=== PATIENT | female | born 1975 | race Caucasian/White ===

== ENCOUNTER → 2017-06-15 14:20 | Outpatient (CLI) | payer OTHER, SELFPAY ==
[2017-06-18 15:24] LABS: HPV Reflexed? NOT INDICATED
== END ==
PROVIDERS: Visit Provider Obstetrics & Gynecology
DX: Z12.4 Encounter for screening for malignant neoplasm of cervix (principal)
CPT/HCPCS: 88175; G0145

== ENCOUNTER 2017-07-30 18:18 | Emergency (ER) | payer OTHER, SELFPAY ==
[2017-07-30 18:21] VITALS: BP 149/99; PULSE 71; RESP 16; TEMP 36.9; O2SAT 98; BMI 28.3
[2017-07-30 21:07] LABS: HIV - WCH Non-Reactive (Nonreactive)
--- NOTE | 2017-07-30 21:19 | ED.VISSUMM ---
- ER Visit Summary Date of Service: 07/30/17 Chief Complaint: Needlestick History of Present Illness: The patient is a 41 F presents for evaluation needlestick left ring finger. 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 States new patient, cleaning her tools when she accidentally punctured and scraped her left ring finger. Initially thought tetanus is unknown, however then state it was 3 years ago. Hepatitis is updated. Discussion with the patient states the patient she managed states that he does not have HIV. However reported his last blood draw was while he was in senior living. Patient is currently breast-feeding a 7-month-old. No previous similar symptoms in the past. No past medical history. Physical Examination: General: Alert and oriented ?3, no acute distress HEENT: Normocephalic, atraumatic. Moist mucosa membranes Neck: supple, nontender. Cardiovascular: Regular rate and rhythm, no murmurs Respiratory: Normal breath sounds, symmetric, no distress Abdomen: Soft, nontender, nondistended Extremities: Nontender, no edema, pulses intact ?4 Neuro: no focal neurological deficits. Skin: Left hand ring finger: There is superficial abrasion dorsal distal phalanx along with the puncture, there is no active bleeding. Test Results: Needlestick protocol, HIV nonreactive Emergency Department Course and Treatment: Needlestick protocol initiated. Patient initially highly concerned with potential HIV exposure especially breast-feeding. Extensive discussion with patient and significant other in the room. Discussed risks and benefits of medications for prophylaxis. CBC recommendations along with side effects of medications shown patient and significant other. They elected to not start prophylaxis at this time. They will be given follow-up with [facility] for outpatient reevaluation. Treatment Plan: [] Disposition: Discharge Impression: Left ring finger puncture and abrasion This note was generated with [employer] dictation software. It may contain incorrect words, spelling, and punctuation that were not noted in review of the chart prior to signing ED Disposition - Plan for ED Patient: Disposition: Home or Assisted Living Chief Complaint: Occup Expose Diagnosis: left ring finger puncture and abrasion Instructions: ED Body Fluid Exp HC Worker Referrals: Care Physician,No Primary [Primary Care Provider] - [facility] Emergency Department [GROUP OF PHYSICIANS] - 1 Day
[2017-07-30 21:26] VITALS: BP 113/77; PULSE 73; RESP 18; O2SAT 98
[2017-08-03 12:13] LABS: HEPATITIS B SURFACE AG Negative (Negative); Hep B Surface Antibodies EMP Non Reactive (.); Hep C Antibodies <0.1 s/co ratio (0.0-0.9)
== END 2017-07-30 21:27 | disposition home or self-care (01) ==
PROVIDERS: Emergency Provider Emergency Medicine
DX: S61.235A Puncture wound without foreign body of left ring finger without damage to nail, initial encounter (principal); S60.415A Abrasion of left ring finger, initial encounter; W46.0XXA Contact with hypodermic needle, initial encounter; Y93.9 Activity, unspecified; Y92.9 Unspecified place or not applicable; Z90.89 Acquired absence of other organs; Z90.710 Acquired absence of both cervix and uterus
CPT/HCPCS: 36415; 86703; 86803; 87340; 90471; 90715; 99282

== ENCOUNTER → 2018-10-28 | Outpatient (CLI) | payer OTHER, SELFPAY ==
[2018-11-02 15:02] LABS: HPV Reflexed? NOT INDICATED
== END | disposition home or self-care (01) ==
LOC: LABSPEC 15:02
PROVIDERS: Visit Provider Obstetrics & Gynecology
DX: Z12.4 Encounter for screening for malignant neoplasm of cervix (principal)
CPT/HCPCS: 88175; G0145

== ENCOUNTER → 2018-11-11 | Outpatient (CLI) | payer OTHER, SELFPAY ==
--- NOTE | 2018-11-11 10:28 | BI_ITS ---
MAMMOGRAPHY - BILATERAL SCREENING REASON FOR EXAM: Female, 42 years old. Routine annual screening examination. PERTINENT HISTORY: Non-contributory. TECHNIQUE: Digital bilateral breast reza (3D mammographic acquisition) in the CC and MLO projections. 2-D mediolateral oblique (MLO) and craniocaudad (CC) views of both breasts were obtained. CAD: Full Field Digital Mammography with Computer Added Detection was performed. COMPARISON: None. Baseline examination. FINDINGS: Breast Composition: The breasts are heterogeneously dense, which may obscure small masses. There are no dominant masses or suspicious calcifications. No other significant abnormalities are identified. BI/SCREEN MAMM (CAD) W/REZA BILAT IMPRESSION: Negative screening mammogram. Yearly followup mammogram recommended. (A) ASSESSMENT CATEGORY: BIRADS Category 1: Negative. A letter regarding these results will be sent to the patient by the facility within 30 days. Approximately 10% of breast cancers are not detected by mammography. A normal mammogram should not delay biopsy of a clinically suspicious abnormality. [id number] Electronically Signed: Juan Watters, at 13:45 EDT , Service support ,
== END | disposition home or self-care (01) ==
PROVIDERS: Referring Provider Obstetrics & Gynecology; Visit Provider Obstetrics & Gynecology
DX: Z12.31 Encounter for screening mammogram for malignant neoplasm of breast (principal)
CPT/HCPCS: 77063; 77067

== ENCOUNTER → 2020-01-26 11:12 | Outpatient (CLI) | payer OTHER, SELFPAY ==
--- NOTE | 2020-01-26 11:16 | RAD_ITS ---
STUDY: X-RAY - LUMBAR SPINE REASON FOR EXAM: Female, 44 years old. PAIN IN LOWER BACK. NO KNOWN INJURY. TECHNIQUE: 5 view(s) of the lumbar spine were obtained. COMPARISON: None FINDINGS: Normal lumbar lordosis. There is no substantial scoliosis. There is a normal alignment of the vertebrae. There is mild multilevel endplate spondylosis of the lumbar vertebrae. Normal disc space heights. There are calcifications within the right upper quadrant. RAD/L/S Spine Min 4 Views IMPRESSION: Mild multilevel endplate spondylosis. Calcifications within the right upper quadrant may reflect cholelithiasis or right renal calculi. Electronically Signed: Ann Ann MD at 10:56 EDT Tel , Service support ,
== END ==
PROVIDERS: PCP Family Medicine; Referring Provider Family Medicine; Visit Provider Family Medicine
DX: M54.5 Low back pain (principal); G89.29 Other chronic pain
CPT/HCPCS: 72110

== ENCOUNTER → 2020-02-09 14:18 | Outpatient (CLI) | payer OTHER, SELFPAY ==
[2020-02-09 17:41] LABS: CRP 4.36 mg/L (0.0-3.0); Uric Acid 4.9 mg/dL (2.6-6.0)
== END ==
PROVIDERS: PCP Family Medicine; Visit Provider Family Medicine
DX: M79.676 Pain in unspecified toe(s) (principal)
CPT/HCPCS: 36415; 84550; 86140

== ENCOUNTER → 2020-07-31 13:44 | Outpatient (CLI) | payer OTHER, SELFPAY ==
--- NOTE | 2020-07-31 13:48 | RAD_ITS ---
STUDY: X-RAY - PELVIS REASON FOR EXAM: Female, 44 years old. Inflammatory polyarthropathy, ATTN: SI joints TECHNIQUE: One view of the pelvis was obtained. COMPARISON: None. FINDINGS: There is a non-specific bowel gas pattern. Normal visualized soft tissue structures. Normal bilateral iliac wings, sacroiliac joints and visualized sacrum. Normal visualized bilateral superior and inferior pubic rami. Normal pubic symphysis. Normal ischial tuberosities. Normal visualized right femoral head. Normal right acetabulum. Normal right hip joint. Normal visualized left femoral head. Normal left acetabulum. Normal left hip joint. RAD/Pelvis 1 or 2 Views IMPRESSION: Normal x-ray examination of the pelvis. Electronically Signed: Juan Watters MD at 15:12 EDT , Service support ,
[2020-07-31 15:06] LABS: Erythrocyte Sedimentation Rate 1 mm/hr (0-30)
[2020-07-31 15:09] LABS: Absolute Lymphocyte Count 2.52 X10^3/uL (0.83-4.51); Absolute Neutrophil Count 3.8 X10^3/uL (2.0-7.7); Basophil# 0.05 X10^3/uL; Basophil% 0.7 % (0-1); Eosinophil# 0.13 X10^3/uL; Eosinophils% 1.8 % (0-5); Hematocrit 44.1 % (37-47); Hemoglobin 14.7 g/dL (12.0-15.0); Lymphocyte # 2.52 X10^3/ul (0.83-4.51); Lymphocyte % 34.6 % (19-41); Mean Corp Hgb Conc 33.3 g/dL (32-36); Mean Corpuscular Hgb 30.1 pg (27.0-32.0); Mean Corpuscular Volume 90.2 fL (81-99); Mean Platelet Vol. 9.8 fl (6.2-12.0); Monocyte# 0.73 X10^3/uL; NRBC Flagged by Analyzer 0 % (0-5); Neutrophil # 3.83 X10^3/uL (2.7-7.7); Neutrophil % 52.5 % (47-70); Platelet Count 320 K/mm3 (150-450); RBC Distribution Width CV 12.4 % (11.6-14.6); RBC Distribution Width SD 41.1 fl (35.1-43.9); Red Blood Count 4.89 M/mm3 (4.2-5.4); White Blood Count 7.3 K/mm3 (4.4-11.0)
[2020-07-31 15:27] LABS: ALB/GLOB Ratio 1.1 RATIO (0.9-2.4); AST(SGOT) 24 U/L (15-37); Alanine Aminotransfer ALT/SGPT 46 U/L (13-56); Albumin, Serum 3.8 g/dL (3.2-5.0); Alkaline Phosphatase 69 U/L (45-117); Anion Gap 8 (5-15); BUN 11 mg/dL (7-18); BUN/Creat Ratio 15.4 RATIO (10-20); CRP 7.63 mg/L (0.0-3.0); Calcium,Total 9.4 mg/dL (8.5-10.1); Chloride 105 mmol/L (98-107); Creatinine, Serum 0.72 mg/dL (0.55-1.02); EST Glomerular Filtration Rate 95 mL/min (>60); Est Glom Filt Rate - Afr Amer 115 mL/min (>60); Globulin 3.5 g/dL (2.2-4.2); Glucose 56 mg/dL (74-106); Potassium 3.5 mmol/L (3.5-5.1); Protein, Total 7.3 g/dL (6.4-8.2); Rheumatoid Factor < 10.0 IU/mL (<15); Sodium Level 141 mmol/L (136-145)
[2020-07-31 16:13] LABS: Hepatitis B Surface Antibody Non-Reactive; Hepatitis B Surface Antigen Non-Reactive (Nonreactive); Hepatitis C Antibody Non-Reactive (Nonreactive)
[2020-08-02 20:48] LABS: ANTINUCLEAR ANTIBODIES DIRECT Negative (Negative)
[2020-08-07 20:39] LABS: CCP IgG Antibodies 2 units (0-19); HLA B27 Negative (.)
== END ==
PROVIDERS: PCP Family Medicine; Referring Provider Internal Medicine Rheumatology; Visit Provider Internal Medicine Rheumatology
DX: M06.4 Inflammatory polyarthropathy (principal); L30.9 Dermatitis, unspecified; G43.909 Migraine, unspecified, not intractable, without status migrainosus
CPT/HCPCS: 36415; 72170; 80053; 81374; 85025; 85652; 86038; 86140; 86200; 86431; 86706; 86803; 87340

== ENCOUNTER → 2020-11-27 09:47 | Outpatient (CLI) | payer OTHER, SELFPAY ==
[2020-11-27 12:16] LABS: Absolute Lymphocyte Count 2.42 X10^3/uL (0.83-4.51); Absolute Neutrophil Count 3.1 X10^3/uL (2.0-7.7); Basophil# 0.04 X10^3/uL; Basophil% 0.6 % (0-1); Eosinophil# 0.16 X10^3/uL; Eosinophils% 2.6 % (0-5); Hematocrit 39.5 % (37-47); Hemoglobin 13.2 g/dL (12.0-15.0); Lymphocyte # 2.42 X10^3/ul (0.83-4.51); Lymphocyte % 38.7 % (19-41); Mean Corp Hgb Conc 33.4 g/dL (32-36); Mean Corpuscular Hgb 29.7 pg (27.0-32.0); Monocyte# 0.53 X10^3/uL; Monocyte% 8.5 % (0-10); NRBC Flagged by Analyzer 0 % (0-5); Neutrophil # 3.09 X10^3/uL (2.7-7.7); Neutrophil % 49.3 % (47-70); Platelet Count 301 K/mm3 (150-450); RBC Distribution Width CV 12.6 % (11.6-14.6); RBC Distribution Width SD 41.2 fl (35.1-43.9); Red Blood Count 4.44 M/mm3 (4.2-5.4); White Blood Count 6.3 K/mm3 (4.4-11.0)
[2020-11-27 12:44] LABS: ALB/GLOB Ratio 1.5 RATIO (0.9-2.4); AST(SGOT) 20 U/L (15-37); Alanine Aminotransfer ALT/SGPT 44 U/L (13-56); Alkaline Phosphatase 48 U/L (45-117); Anion Gap 6 (5-15); BUN 9 mg/dL (7-18); BUN/Creat Ratio 13.9 RATIO (10-20); Calcium,Total 9.4 mg/dL (8.5-10.1); Chloride 107 mmol/L (98-107); Creatinine, Serum 0.65 mg/dL (0.55-1.02); EST Glomerular Filtration Rate 106 mL/min (>60); Est Glom Filt Rate - Afr Amer 128 mL/min (>60); Globulin 2.7 g/dL (2.2-4.2); Glucose 87 mg/dL (74-106); Protein, Total 6.7 g/dL (6.4-8.2); Sodium Level 137 mmol/L (136-145)
== END ==
PROVIDERS: PCP Family Medicine; Referring Provider Internal Medicine Rheumatology; Visit Provider Internal Medicine Rheumatology
DX: M06.4 Inflammatory polyarthropathy (principal); Z79.899 Other long term (current) drug therapy; L30.9 Dermatitis, unspecified; G43.909 Migraine, unspecified, not intractable, without status migrainosus
CPT/HCPCS: 36415; 80053; 85025

== ENCOUNTER 2021-01-28 13:00 | Outpatient (RCR) | payer OTHER, SELFPAY | END 2021-02-03 23:59 | LOC: NS 13:00 | PROVIDERS: PCP Family Medicine; Visit Provider Family Medicine | DX: E66.9 Obesity, unspecified (principal); Z68.31 Body mass index [BMI] 31.0-31.9, adult | CPT/HCPCS: 97802; 97803 ==

== ENCOUNTER 2021-02-25 10:00 | Outpatient (RCR) | payer OTHER, SELFPAY | END 2021-03-05 23:59 | LOC: NS 10:00 | PROVIDERS: PCP Family Medicine; Visit Provider Family Medicine | DX: E66.9 Obesity, unspecified (principal); Z68.31 Body mass index [BMI] 31.0-31.9, adult | CPT/HCPCS: 97803 ==

== ENCOUNTER → 2021-03-19 12:11 | Outpatient (CLI) | payer OTHER, SELFPAY ==
--- NOTE | 2021-03-19 12:13 | BI_ITS ---
MAMMOGRAPHY - BILATERAL SCREENING REASON FOR EXAM: Female, 45 years old. Routine annual screening examination. PERTINENT HISTORY: Non-contributory. TECHNIQUE: Digital bilateral breast reza (3D mammographic acquisition) in the CC and MLO projections. 2-D mediolateral oblique (MLO) and craniocaudad (CC) views of both breasts were obtained. CAD: Full Field Digital Mammography with Computer Added Detection was performed. COMPARISON: Comparison is made with prior examination dated 11/11/2018. FINDINGS: Breast Composition: The breasts are heterogeneously dense, which may obscure small masses. I suspect a new 1.1 cm nodular density in the upper lateral aspect of the left breast. Correlation with ultrasound is recommended. No other significant abnormalities are identified. BI/SCRN MAMM (CAD)W/REZA BILAT IMPRESSION: 1.1 cm nodular density in the upper lateral aspect of the left breast. Correlation with ultrasound is recommended. ASSESSMENT CATEGORY: BIRADS Category 0: Incomplete. Need additional imaging evaluation. A letter regarding these results will be sent to the patient by the facility within 30 days. Approximately 10% of breast cancers are not detected by mammography. A normal mammogram should not delay biopsy of a clinically suspicious abnormality. [id number] Electronically Signed: Juan Watters MD at 13:57 EST , Service support ,
== END ==
PROVIDERS: PCP Family Medicine; Visit Provider Student in an Organized Health Care Education/Training Program
DX: Z12.31 Encounter for screening mammogram for malignant neoplasm of breast (principal)
CPT/HCPCS: 77063; 77067

== ENCOUNTER → 2021-03-26 07:52 | Outpatient (CLI) | payer OTHER, SELFPAY ==
--- NOTE | 2021-03-26 07:58 | US_ITS ---
STUDY: ULTRASOUND BREAST - LEFT REASON FOR EXAM: Female, 45 years old. Questionable nodule in the upper-outer quadrant of the left breast. TECHNIQUE: Axial and longitudinal images of the LEFT breast were performed with a high resolution ultrasound transducer. # OF IMAGES: 26 COMPARISON: Comparison is made with prior mammogram dated 03/19/2021. FINDINGS: LEFT Breast: The upper lateral aspect of the left breast was examined by ultrasound. No solid or cystic nodule is seen. Routine annual mammographic follow-up is recommended. US/Breast Limited Unilateral IMPRESSION: No sonographic abnormality is seen in the upper-outer quadrant of the left breast. Routine annual mammographic follow-up is recommended. ASSESSMENT CATEGORY: BIRADS Category 1: Negative. A letter regarding these results will be sent to the patient by the facility within 30 days. Electronically Signed: Juan Watters MD at 8:56 EST , Service support ,
== END ==
PROVIDERS: PCP Family Medicine; Referring Provider Student in an Organized Health Care Education/Training Program; Visit Provider Student in an Organized Health Care Education/Training Program
DX: N63.20 Unspecified lump in the left breast, unspecified quadrant (principal)
CPT/HCPCS: 76642

== ENCOUNTER 2022-01-31 08:58 | Outpatient (RCR) | payer OTHER, SELFPAY ==
--- NOTE | 2022-01-31 10:57 | HP.PTEVAL ---
Patient's Visit Information VIKTOR LOONEY is a 46 year old F referred to Physical Therapy by NOLVIA SCHULTE with a diagnosis of COCCYDYNIA. Date of Evaluation: 01/31/22 Physical Therapist: Brigid Marie PT, Cert MDT - Visit Plan Frequency: 1-2x /Week Duration: 6-8 WKS Plan: POSTURE CORRECTION/STRENGTHENING, INSTRUCTION IN APPROPRIATE BODY MECHANICS AND ACTIVITY MODIFICATIONS. DLS STARTING WITH A NEUTRAL SPINE PROGRESSING ROM TOLERATED. PELVIC FLOOR STRENGTHENING. LUIS M LE ROM, STRETCHING AND STRENGTHENING. HEP INSTRUCTION. 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 Disability: NO. Present symptoms: LUIS M LOW BACK PAIN BUT LOWER LEFT LOW BACK PAIN THAT RADIATES INTO HER LEFT HIP AND GROIN IS THE WORST. CURRENTLY TAILBONE ALSO HURTS AND DRIVING IS HORRIBLE. SITTING SIDEWAYS TO TOLERATE SITTING. PATIENT DENIES LUIS M LE SX'S EXCEPT L HIP AND GROIN. PATIENT REPORTS SHE HAS BEEN HAVING LOW BACK PAIN FOR 8+ YEARS. INJECTIONS HAVEN'T HELPED. SHE REPORTS SHE WAS SENT HERE TODAY DUE TO RECENT TAILBONE PROBLEMS. Present since: PATIENT REPORTS SHE BROKE OR DISLOCATED HER TAILBONE IN DEC 2021. LBP STARTED ABOUT 8 YEARS AGO. Pain Scale: WORST 8/10 (SHARP SHOOTING PAIN INTO HIP/GROIN L). LEAST 0/10. Currently: 4/10. Is it getting better, worse or staying the same: GETTING WORSE. Commenced as a result of: DURING 2ND THEY HAD A REALLY HARD TIME GETTING EPIDURAL IN (8 YEARS AGO) AND POSSIBLY STARTED LBP. FALL ON ICE WHILE SKATING 12/29/21. Worse: SITTING, TRAVELING INCRASE TAILBONE PAIN. LBP IS WORSE IN THE MORNING AND WITH BENDING. THE SHOOTING PAINS ARE RANDOM. ABLE TO WORK THROUGH LBP BUT NOT SHOOTING PAINS INTO HIP/GROIN. Better: SQUATTING DOWN HELPS SHARP SHOOTING PAIN. CHANGING POSITIONS. SITTING HELPS LBP BUT NOT WITH TAILBONE PAIN. Disturbed sleep: NO. Previous history/Previous treatment: CHIROPRACTOR X 8 YEARS NEEDED. PAIN MGMT STARTING IN JUNE 2021. L45, L5S1 FACET INJECTIONS/PROCEEDURES. HAS SEEN [facility] [employer] AND DR. OLIVEIRA. DX'D WITH INFLAMMATION. CONSULT WITH DR. RAMIREZ AND REFERRED TO PAIN MGMT. HAS HAD ABOUT 4 INJECTIONS WITHOUT LASTING BENEFIT. STILL SEEING CHIROPRACTOR. PATIENT REPORTS SHE WAS SENT TO AN ORTHO SPECIALIST IN THE [place] AFTER DX'D WITH TAIL BONE DISLOCATION. SHE DENIES HAVING A DIGITAL RECTAL EXAM. URGENT CARE SENT HER TO THIS SPECIALIST IN [place]. THIS DR. SCHULTE REFERRED HER TO PT. DONUT CUSHION MADE IT WORSE SO CUT BACK OUT AND HELPED A BIT. Coughing/sneezing/straining: NEGATIVE FOR BACK AND TAILBONE PAIN. OCCASSIONAL, MINIMAL URINARY LEAKING WITH COUGHING/SNEEZING. Gait: NORMAL. Bowel or Bladder Dysfunction: PATIENT REPORTS SHE DOES NOT ALWAYS MAKE IT TO THE BATHROOM BEFORE HAVING A BOWEL MVMT SINCE FIRST . PATIENT DENIES SADDLE ANESTHESIAS. OCCASSIONAL, MINIMAL URINARY LEAKING WITH COUGHING/SNEEZING. INSTRUCTED PATIENT TO INFORM PCP AND PAIN MGMT DOCTORS RIGHT AWAY ABOUT INCONTINENCE AND TO SEEK EMERGENCY MEDICAL ATTENTION IF EPISODE OF LOSS OF BOWEL OR BLADDER CONTROL. Accidents: NO. Unexplained weight loss: NO. Imaging: LUMBAR MRI APR 2021 - NORMAL PER PATIENT REPORT AFTER CONSULT WITH DR. RAMIREZ. JULY 2020 PELVIC X-RAY IMPRESSION: Normal x-ray examination of the pelvis. PATIENT REPORTS RECENT X-RAYS AT [facility] REVEAL FX'D OR DISLOCATED TAILBONE. . PMH/Recent major surgery: LUMBAR FACET ARTHRITIS WITH H/O PAIN MGMT PROCEEDURES. 2017 BLADDER INJURY DURING AND HAD TO BE REPAIRED. PATIENT FEELS LIKE SHE RECOVERED FROM HER BLADDER INJURY AND THE REPAIR WORKED BUT SOMETIMES FEELS LIKE SHE HAS URINARY RETENTION AT TIMES. PATIENT DENIES EVER SEEING A urogynecologist OR DISCUSSING INCONTINENCE WITH ANY OF HER DOCTORS. - Objective Sitting/Standing Posture: SLOUCHED. FH. RSH'S. NO RELEVENT LUMBAR LATERAL SHIFT. Active Correction of posture: BETTER - ACTIVELY AND WITH LUMBAR SUPPORT. BOTH DECREASE HER TAILBONE PAIN. Other Observations: THIS PATIENT AMBULATES INDEP'LY INTO PT WITHOUT ANY GROSS DEVIATIONS NOTED. ROM deficit: TIGHT LUIS M LE HS'S AND GASTROC SOLEUS COMPLEX'S. Motor deficit: LUIS M LE'S GROSSLY 5/5 WITH MMT'ING EXCEPT HIPS 4/5. PATIENT DENIED ANY INCREASED PAIN WITH MMT'ING. Dural Signs: NEGATIVE LUIS M LE'S. Lumbar mvmt loss: flex - MIN. ext - MOD. R SG - MIN. L SG - MIN. PATIENT C/O INCREASED LOWER LEFT LBP WITH LUMBAR ROM TESTING ALL PLANES BUT ESPECIALLY FLEX AND EXT TESTING. Core strength: POOR. Palpation: NO ACUTE LOW BACK OR LUIS M HIP TENDERNESS. ACUTE TENDERNESS OVER TAILBONE. OTHER: PATIENT AGREEABLE TO BACK AND LE TESTING TODAY. COMMUNICATES A GOOD UNDERSTANDING OF HOW TO CONTRACT HER PELVIC FLOOR. AFTER DISCUSSION, PATIENT IS GOING TO CONSIDER GOING TO PELVIC FLOOR THERAPIST IN [place] RECOMMENDED BY DR SCHULTE FOR COCCYX PAIN. WILL HOLD CHART. EDUCATED PATIENT ON THIS PT'S LAM THERAPY CREDENTIAL AND INTRODUCTORY PELVIC FLOOR TRAINING. PATIENT REPORTS SHE WANTS TO SEE COCCYX X-RAYS AND FIND OUT IF HER COCCYX IS BROKEN OR DISLOCATED BEFORE DOING PT BECAUSE SHE HAS BEEN GIVEN BOTH DX'S. - Balance/Special Test Scores Oswestry Low Back Score: 10 - Goals Goal 1:: DECREASE C/O LOW BACK AND TAILBONE PAIN. Goal Time Frame: 6-8 Weeks Goal 2:: IMPROVE SITTING, STANDING, SOCIAL LIFE, TRAVEL AND HOMEMAKING FUNCTION Goal Time Frame: 6-8 Weeks Goal 3:: INSTRUCT IN PROPHYLAXIS Goal Time Frame: 6-8 Weeks - Anticipated Interventions Patient/Client Instruction: Educate patient on: Condition, Plan of Care, Risk Factors For the Purpose of:: To improve self management Therapeutic Exercise to Include: Strength training, Body mechanics, Postural training, Flexibilty training, Neuromotor development, In an aquatic setting, Dynamic Lumbar Stabilization For the Purpose of:: To decrease pain, To increase ROM, To improve muscle performance and motor function, To increase tolerance to activity/condition/position, To improve ability of physical actions for home/community/work/leisure Manual Therapy Techniques to Include: Soft tissue mobilization Comment: MANUAL INTERNAL PF STM IF Patient AGREEABLE & TESTING DEEMS NECESSARY For the Purpose of:: To decrease pain, To increase ROM, To improve muscle performance and motor function Thank you for the opportunity to evaluate your patient. For Medicare and Medicare HMO plans, please review the plan of care and approve it. It will need to be FAXED BACK to us at [phone] for Medicare purposes. For Medicare only, by signing this I certify the plan of care. Please let me know if there are questions or concerns regarding this plan of care. Physician Signature: Date:
--- NOTE | 2022-04-04 16:31 | HP.PTDCNRP_ITS ---
VIKTOR LOONEY was seen in my office for initial evaluation on 01/31/22. The following Plan of Care was established for this patient: Initial Frequency: 1-2x /Week Initial Duration: 6-8 WKS Patient/Client Instruction: Educate patient on: Condition, Plan of Care, Risk Factors For the Purpose of:: To improve self management Therapeutic Exercise to Include: Strength training, Body mechanics, Postural training, Flexibilty training, Neuromotor development, In an aquatic setting, Dynamic Lumbar Stabilization For the Purpose of:: To decrease pain, To increase ROM, To improve muscle performance and motor function, To increase tolerance to activity/condition/position, To improve ability of physical actions for home/community/work/leisure Manual Therapy Techniques to Include: Soft tissue mobilization Comment: MANUAL INTERNAL PF STM IF Patient AGREEABLE & TESTING DEEMS NECESSARY For the Purpose of:: To decrease pain, To increase ROM, To improve muscle p erformance and motor function This patient was last seen in our office 01/31/22. Pertinent comments regarding their Physical therapy will appear below: This patient has not returned to Physical Therapy and is appropriate to return to MD for further follow-up as needed. At this point I will be discontinuing this patient from physical therapy. I would be happy to see this patient again in the future if found appropriate by the physician. Thank you! Brigid Marie, PT, Cert MDT Balance/Gait/Functional tests - Balance/Special Test Scores Oswestry Low Back Score: 10
== END 2022-01-31 19:00 | disposition home or self-care (01) ==
LOC: PT 08:58
PROVIDERS: PCP Family Medicine
DX: M53.3 Sacrococcygeal disorders, not elsewhere classified (principal)
CPT/HCPCS: 97162

== ENCOUNTER → 2022-02-13 | Outpatient (CLI) | payer OTHER, SELFPAY ==
[2022-02-13 12:28] LABS: Absolute Lymphocyte Count 2.91 X10^3/uL (0.83-4.51); Absolute Neutrophil Count 4.2 X10^3/uL (2.0-7.7); Basophil# 0.04 X10^3/uL; Basophil% 0.5 % (0-1); Eosinophils% 1.3 % (0-5); Hematocrit 43.3 % (37-47); Hemoglobin 14.6 g/dL (12.0-15.0); Lymphocyte # 2.91 X10^3/ul (0.83-4.51); Lymphocyte % 36.9 % (19-41); Mean Corp Hgb Conc 33.7 g/dL (32-36); Mean Corpuscular Volume 88.9 fL (81-99); Mean Platelet Vol. 9.2 fl (6.2-12.0); Monocyte# 0.59 X10^3/uL; Monocyte% 7.5 % (0-10); NRBC Flagged by Analyzer 0 % (0-5); Neutrophil # 4.23 X10^3/uL (2.7-7.7); Neutrophil % 53.5 % (47-70); Platelet Count 335 K/mm3 (150-450); RBC Distribution Width CV 12.5 % (11.6-14.6); RBC Distribution Width SD 41.1 fl (35.1-43.9); Red Blood Count 4.87 M/mm3 (4.2-5.4); White Blood Count 7.9 K/mm3 (4.4-11.0)
[2022-02-13 12:41] LABS: Erythrocyte Sedimentation Rate 9 mm/hr (0-30)
[2022-02-13 13:01] LABS: ALB/GLOB Ratio 1.2 RATIO (0.9-2.4); AST(SGOT) 19 U/L (15-37); Alanine Aminotransfer ALT/SGPT 41 U/L (13-56); Albumin, Serum 4.1 g/dL (3.2-5.0); Alkaline Phosphatase 60 U/L (45-117); Anion Gap 7 (5-15); BUN 9 mg/dL (7-18); BUN/Creat Ratio 13.6 RATIO (10-20); CRP 5.29 mg/L (0.0-3.0); Calcium,Total 9.4 mg/dL (8.5-10.1); Chloride 108 mmol/L (98-107); Creatinine, Serum 0.66 mg/dL (0.55-1.02); EST Glomerular Filtration Rate 103 mL/min (>60); Est Glom Filt Rate - Afr Amer 124 mL/min (>60); Globulin 3.4 g/dL (2.2-4.2); Glucose 88 mg/dL (74-106); LDH 168 U/L (84-246); Potassium 3.7 mmol/L (3.5-5.1); Protein, Total 7.5 g/dL (6.4-8.2); Sodium Level 140 mmol/L (136-145)
[2022-02-14 13:08] LABS: Anti-Centromere B Ab <0.2 AI (0.0-0.9); Anti-Chromatin <0.2 AI (0.0-0.9); Anti-Jo <0.2 AI (0.0-0.9); Anti-Scleroderma-70 AB <0.2 AI (0.0-0.9); RNP Ab <0.2 AI (0.0-0.9); SJOGREN'S Anti-SS-A test < 0.2 AI (0.0-0.9); SJOGREN'S Anti-SS-B test < 0.2 AI (0.0-0.9); Smith Ab <0.2 AI (0.0-0.9)
[2022-02-14 15:08] LABS: Endomysial Antibody IgA Negative (Negative)
[2022-02-14 15:35] LABS: Anti-dsDNA Ab 1 IU/mL (0-9)
[2022-02-14 15:39] LABS: Immunoglobulin A 108 mg/dL (87-352); t-Transglutaminase IgA <2 U/mL (0-3)
[2022-02-17 10:07] LABS: Albumin 4.2 g/dL (2.9-4.4); Alpha-1-Globulins 0.2 g/dL (0.0-0.4); Alpha-2-Globulins 0.9 g/dL (0.4-1.0); Cytoplasmic Ab (C-ANCA) <1:20 titer (Neg:<1:20); Gamma Globulin 0.8 g/dL (0.4-1.8); Immunoglobulin A 108 mg/dL (87-352); Immunoglobulin E 20 IU/mL (6-495); Immunoglobulin G 774 mg/dL (586-1602); Immunoglobulin M 144 mg/dL (26-217); PROEL- TOTAL PROTEIN 7.1 g/dL (6.0-8.5)
[2022-02-17 17:50] LABS: Perinuclear Ab (P-ANCA) <1:20 titer (Neg:<1:20)
== END | disposition home or self-care (01) ==
PROVIDERS: PCP Family Medicine; Visit Provider Nurse Practitioner Adult Health
DX: K52.9 Noninfective gastroenteritis and colitis, unspecified (principal)
CPT/HCPCS: 36415; 80053; 82784; 82785; 83516; 83615; 84165; 85025; 85652; 86140; 86225; 86235; 86255; 86256; 86334

== ENCOUNTER → 2022-02-14 | Outpatient (CLI) | payer OTHER, SELFPAY ==
[2022-02-18 13:39] LABS: Calprotectin, Stool <16 ug/g (0-120)
== END | disposition home or self-care (01) ==
PROVIDERS: PCP Family Medicine; Referring Provider Nurse Practitioner Adult Health; Visit Provider Nurse Practitioner Adult Health
DX: K58.9 Irritable bowel syndrome, unspecified (principal)
CPT/HCPCS: 83630; 83993; 87177; 87209; 87493; 87506

== ENCOUNTER 2022-02-22 08:46 | Outpatient (CLI) | payer OTHER, SELFPAY ==
--- NOTE | 2022-02-22 08:54 | US_ITS ---
STUDY: ABDOMINAL ULTRASOUND REASON FOR EXAM: Female, 46 years old. Right upper quadrant pain, diarrhea TECHNIQUE: Transabdominal ultrasound was performed with real-time and static walls scale imaging. TECHNICAL QUALITY: Limited. Examination limited by bowel gas. COMPARISON: None. FINDINGS: Liver: The liver measures 17.9 cm. There is increased echogenicity consistent with fatty infiltration. The bile ducts are within normal limits. There is hepatic color flow. The direction of portal flow is hepatopetal. There is no demonstrated mass lesion. Portal vein measurement: Gallbladder: Normal distended gallbladder. The gallbladder wall measures 1.3 mm. There is a negative sonographic Metzger''s sign. There is no pericholecystic fluid. There are multiple echogenic structures within the gallbladder, consistent with multiple gallstones. Common Bile Duct (C.B.D.): The common bile duct measures 4 mm. Pancreas: The visualized pancreas is sonographically normal Spleen: Normal size of the spleen. The spleen measures 11 cm. Right Kidney: Normal size of the right kidney. The right kidney measures 10.5 x 4.3 x 3.6 cm. Normal renal cortex. . There is no demonstrated renal mass or cyst. There is no right hydronephrosis, there are nonobstructing stones, largest measures 1.14 cm.. Left Kidney: Normal size of the left kidney. The left kidney measures 11 x 4.8 x 5.3 cm. Normal renal cortex. There is no demonstrated renal mass or cyst. There is no left hydronephrosis. Aorta: Tapers normally I.V.C.: The IVC is patent. There is no ascites. US/Abdomen Complete IMPRESSION: Fatty liver, no discrete lesion Nonobstructing right nephrolithiasis Cholelithiasis, no sonographic evidence of acute cholecystitis Electronically Signed: Remigio Celestin MD at 10:21 EST ,
== END 2022-02-22 23:59 | disposition home or self-care (01) ==
PROVIDERS: PCP Family Medicine; Referring Provider Nurse Practitioner Adult Health; Visit Provider Nurse Practitioner Adult Health
DX: R19.7 Diarrhea, unspecified (principal); R10.11 Right upper quadrant pain
CPT/HCPCS: 76700

== ENCOUNTER 2022-04-15 11:03 | Day surgery (SDC) | payer OTHER, SELFPAY ==
--- NOTE | 2022-04-15 11:38 | HP.PCM_ITS ---
History and Physical Date of Admission: 04/15/22 46 F who presents to the office today for referral for urgent diarrhea with fecal incontinence. She recalls a lifetime of urgent loose stools. The fecal incontinence isn't new, it occurs with the urgency. Has always had multiple stools per day. Has gotten worse over time. She gets nocturnal symptoms about 2- 3x per month: crampy abd pains which can be severe, then BM which can be formed, then more stools that are watery; occurs especially after greasy foods. She has 4-5 BMs per day. Usually mushy or loose or watery, occas formed, never constipation. No melena or hematochezia. She gets nausea from spicy foods. Heartburn began during her first . Takes TUMS regularly. Can have acid reflux in the night. She had C diff after appy in 2003 Gallstones were seen on xray done for back pain Dec 2021 broke her tailbone. She was referred for pelvic floor PT, the PT was concerned that she has fecal incontinence. Cousin and cousin's daughter have Crohn's Back issues x [address] Hanna, diagnosed with inflammatory polyarthropathy. She has pains in her back and toes. PSH: x 4, hysterectomy, appy ROS Const Constitutional: Positive for fatigue ENT ENT: No difficulty swallowing Gastro GI: Positive for diarrhea; No abdominal pain, belching, bloating, change in bowel habits, change in stool character, coffee ground emesis, constipation, cramping, heartburn, difficulty swallowing, feeling full early, excessive flatus, incontinent of stools, Vomiting blood/hematemesis, Blood in stool, loose stools, Black,tarry stools, nausea/dyspepsia, pain with swallowing, vomiting or other Musc Musculoskeletal: Positive for joint pain, back pain, stiffness and Arthritis Skin Skin: No yellowing of the eye or itchy eyes Psych Psychiatric: No anxiety and No depression Endo Endocrine: Positive for fatigue Aller/Imm Allergy/Immunologic: No itchy eyes Tanmay/Lymp Hematologic/Lymphatic: No easy bleeding or easy bruising Exam Const General: cooperative and comfortable Nutritional Appearance: obese Orientation: alert, awake and oriented x3 HENMT Head: normal to inspection Eyes General: appearance normal, both eyes and all related structures Resp Effort & Inspection: normal respiratory effort GI Inspection: normal to inspection Palpation: soft, no hepatosplenomegaly, no masses and tender (minimal generalized tenderness) Quality Reporting Tobacco Screening (CMS 138) Smoking Status: Never smoker Assessment and Plan Assessment and Plan (1) Chronic diarrhea: ?Status:?Chronic ?Plan: 46 yr old female with chronic diarrhea, fecal incontinence with urgent diarrhea, nocturnal diarrhea. Workup to eval for celiac, IBD, infection. Prior C diff infection. EGD and colonoscopy w/ office f/u afterwards No treatment desired at this time RUQ US to eval previous incidental finding of gallstones CT can be ordered later if needed (2) Gallstones: ?Status:?Acute ?Plan: as above ? ? ? Orders: Orders Abdomen Complete Today K52.9 - Noninfective gastroenteritis and colitis, unspecified, K80.20 - Calculus of gallbladder without cholecystitis without obstruction ? Comprehensive Metabolic Profil Today K52.9 - Noninfective gastroenteritis and colitis, unspecified ? CRP Today K52.9 - Noninfective gastroenteritis and colitis, unspecified ? LDH Today K52.9 - Noninfective gastroenteritis and colitis, unspecified ? CBC W/Diff, Automated Today K52.9 - Noninfective gastroenteritis and colitis, unspecified ? Erythrocyte Sed Rate Today K52.9 - Noninfective gastroenteritis and colitis, unspecified ? UMU Comprehensive Panel Today K52.9 - Noninfective gastroenteritis and colitis, unspecified ? Calprotectin, Stool Today K52.9 - Noninfective gastroenteritis and colitis, unspecified ? Ova and Parasites [id number] Today K52.9 - Noninfective gastroenteritis and colitis, unspecified, K58.9 - Irritable bowel syndrome without diarrhea ? CDIFF (PCR) Today K52.9 - Noninfective gastroenteritis and colitis, unspecified ? ENTERIC PATHOGEN PANEL STOOL Today K52.9 - Noninfective gastroenteritis and colitis, unspecified, K58.9 - Irritable bowel syndrome without diarrhea ? Stool Lactoferrin/WBC Today K52.9 - Noninfective gastroenteritis and colitis, unspecified ? ANCA Today K52.9 - Noninfective gastroenteritis and colitis, unspecified ? Celiac Disease Profile Today K52.9 - Noninfective gastroenteritis and colitis, unspecified ? Immunoglobulins G/A/M/E Today K52.9 - Noninfective gastroenteritis and colitis, unspecified ? ZANE + Protein Elect, Serum Today K52.9 - Noninfective gastroenteritis and colitis, unspecified ? Miscellaneous Lab Procedure Today K52.9 - Noninfective gastroenteritis and c olitis, unspecified ? I have examined the patient and the H&P has been reviewed. There are no clinical changes since date of exam.
[2022-04-15 11:40] VITALS: BP 119/87; PULSE 78; RESP 12; TEMP 36.6; O2SAT 98
[2022-04-15] MEDS: Lactated Ringers 1,000 ML 15 ML IV (11:46)
--- NOTE | 2022-04-15 12:00 | IMM_PTH ---
PATIENT: VIKTOR LOONEY LOC: EN U#:[id number] AGE/SX: 46/F ROOM: RE04/15/[address]: Dr. J Carlos Hinson DO : 1975 BED: DIS: 04/15/2022 SPEC #: [id number] RECD: 04/16/22 09:26 STATUS: LEXX REDrew #: [id number] JAIRO: 04/15/22 12:[address]: J Carlos Hinson DEPT: IMMUNOHISTOCHEMISTRY RECD BY: Roseline Haile ENTERED: 04/16/22 09:26 SP TYPE: IMMUNO OTHR DR: Dr. Bob Remy DO Tissues: B - Stomach, NOS Procedures: H Pylori (initial) PHYSICIAN & INSTITUTION [place] [id number] SPECIMEN INFORMATION: Tissue Source: B ? Gastric body Clinical Info: Chronic diarrhea, gallstones Specimen Number: [id number] CPT code: 14343 METHODOLOGY: Deparaffinized sections of prefer/formalin-fixed tissue or PAP/DQ stained slides are incubated with monoclonal/polyclonal antibodies/oligonucleotide probes. Localization is made via biotin free immunoperoxidase method. Appropriate controls are performed and reacted as expected. Results on target cell population are indicated in the following table: RESULTS: ANTIBODY / CLONE RESULT Block B H Pylori (polyclonal) negative These tests were developed and their performance characteristics determined by [facility]. They may not have been cleared or approved by the U.S. Food and Drug Administration. The FDA has determined that such clearance or approval is not necessary. The above immunohistochemical/dualISH markers are ordered and reviewed by the Pathologist. INTERPRETATION: B. Gastric body, biopsy: Negative for Helicobacter pylori organisms. [facility] 04/17/2022
--- NOTE | 2022-04-15 12:00 | EGD_PTH ---
PATIENT: VIKTOR LOONEY LOC: [facility] U#:[id number] AGE/SX: 46/F ROOM: RE04/15/[address]: Dr. J Carlos Hinson DO : 1975 BED: DIS: 04/15/2022 SPEC #: [id number] RECD: 04/15/22 14:22 STATUS: LEXX DIRK #: [id number] JAIRO: 04/15/22 12:[address]: J Carlos Hinson DEPT: SURGICAL PATHOLOGY RECD BY: Tammie Gagnon ENTERED: 04/16/22 07:23 SP TYPE: EGD BIOPSY OT DR: Dr. Bob Remy DO Tissues: A - Duodenum, NOS B - Gastric mucous membrane C - Esophagus, NOS D - COLON BIOPSY E - Rectum, NOS Procedures: Special Stain Group II Surgery Specimen Level IV Alcian Blue/PAS (control) HEADER OPERATION: Colonoscopy, EGD (MAC), biopsy PRE-OP DIAGNOSIS: Chronic diarrhea, gallstones TISSUE SUBMITTED: A ? Duodenum biopsy, B ? Gastric body biopsy, C ? Distal esophagus biopsy, D ? Random colonic biopsy, E ? Rectal biopsy MICROSCOPIC DIAGNOSIS A. Duodenum, biopsy: Fragments of duodenal mucosa with mild nonspecific chronic inflammation. B. Gastric body, biopsy: Mild gastritis. See microscopic description and comment. C. Distal esophagus, biopsy: Fragments of gastric mucosa with chronic inflammation. Intestinal metaplasia (goblet cell metaplasia) not identified. See comment. D. Colon, random biopsy: Fragments of colonic mucosa, no pathologic diagnosis. E. Rectal biopsy: Fragments of colonic mucosa, no pathologic diagnosis. SJ:dale 04/17/2022 COMMENT B. The results of immunohistochemistry for Helicobacter pylori will be reported separately ([id number]). C. Alcian blue/PAS stain with matched control is used in the evaluation of the specimen. MICROSCOPIC DESCRIPTION Slides are reviewed. B. The specimen shows fragments of gastric mucosa with chronic inflammatory cell infiltrates in the lamina propria consisting of lymphocytes and plasma cells, consistent with mild chronic gastritis. GROSS DESCRIPTION A - Received in fixative is one container labeled with the patient's name and designated duodenum biopsy. The specimen consists of multiple irregular fragments of light ramey soft tissue that in aggregate measure 0.5 x 0.5 x 0.1 cm. The specimen is totally submitted in one cassette. B - Received in fixative is one container labeled with the patient's name and designated gastric body biopsy. The specimen consists of two irregular fragments of light ramey soft tissue that in aggregate measure 0.8 x 0.6 x 0.1 cm. The specimen is totally submitted in one cassette. C - Received in fixative is one container labeled with the patient's name and designated distal esophagus biopsy. The specimen consists of two irregular fragments of light ramey soft tissue that in aggregate measure 0.7 x 0.7 x 0.1 cm. The specimen is totally submitted in one cassette. D - Received in fixative is one container labeled with the patient's name and designated random colon biopsy. The specimen consists of multiple irregular fragments of light ramey soft tissue that in aggregate measure 1 x 1 x 0.1 cm. The specimen is totally submitted in one cassette. E - Received in fixative is one container labeled with the patient's name and designated rectal biopsy. The specimen consists of multiple irregular fragments of light ramey soft tissue that in aggregate measure 1 x 0.2 x 0.1 cm. The specimen is totally submitted in one cassette. / AM:dale 04/16/2022 TC:3 CPT: 09867 x5, 98863
[2022-04-15 13:15] VITALS: BP 103/75; BP 119/87; PULSE 72; RESP 16; TEMP 37.3; O2SAT 97
--- NOTE | 2022-04-15 13:16 | OP.EGD_ITS ---
Patient Name: Juana Abbott Procedure Date: 04/15/2022 12:42 PM Date of : 1975 Age: 46 Procedure: Upper GI endoscopy Indications: Epigastric abdominal pain, Functional Dyspepsia Providers: J Carlos Hinson DO Referring MD: J Carlos Hinson DO Medicines: Monitored Anesthesia Care Patient Profile: This is a 46 year old female. Refer to note in patient chart for documentation of history and physical. Patient has symptoms of acute abdominal cramping and acute epigastric abdominal pain. Complications: No immediate complications. Procedure: Pre-Anesthesia Assessment: - Prior to the procedure, a History and Physical was performed, and patient medications and allergies were reviewed. The patient is competent. The risks and benefits of the procedure and the sedation options and risks were discussed with the patient. All questions were answered and informed consent was obtained. Patient identification and proposed procedure were verified by the physician in the pre-procedure area. Mental Status Examination: alert and oriented. Airway Examination: normal oropharyngeal airway and neck mobility. Respiratory Examination: clear to auscultation. CV Examination: normal. Prophylactic Antibiotics: The patient does not require prophylactic antibiotics. Prior Anticoagulants: The patient has taken no previous anticoagulant or antiplatelet agents. After reviewing the risks and benefits, the patient was deemed in satisfactory condition to undergo the procedure. The anesthesia plan was to use monitored anesthesia care (MAC). Immediately prior to administration of medications, the patient was re-assessed for adequacy to receive sedatives. The heart rate, respiratory rate, oxygen saturations, blood pressure, adequacy of pulmonary ventilation, and response to care were monitored throughout the procedure. The physical status of the patient was re-assessed after the procedure. After obtaining informed consent, the endoscope was passed under direct vision. Throughout the procedure, the patient's blood pressure, pulse, and oxygen saturations were monitored continuously. The colonoscope was introduced through the mouth, and advanced to the second part of duodenum. The upper GI endoscopy was accomplished without difficulty. The patient tolerated the procedure well. Scope In: 12:50:33 PM Scope Out: 12:54:11 PM Total Procedure Duration Time 0 hours 3 minutes 38 seconds Findings: The Z-line was irregular and was found 35 cm from the incisors. Biopsies were taken with a cold forceps for histology. Verification of patient identification for the specimen was done. Estimated blood loss was minimal. Patchy mild inflammation characterized by erosions was found in the gastric antrum. Biopsies were taken with a cold forceps for histology. Verification of patient identification for the specimen was done. Estimated blood loss was minimal. No gross lesions were noted in the second portion of the duodenum. Biopsies were taken with a cold forceps for histology. Verification of patient identification for the specimen was done. Estimated blood loss was minimal. Impression: - Z-line irregular, 35 cm from the incisors. Biopsied. - Gastritis. Biopsied. - No gross lesions in the second portion of the duodenum. Biopsied. Recommendation: - Discharge patient to home. - Resume previous diet. - Continue present medications. - Await pathology results. Procedure Code(s): --- Professional --- 41101, Esophagogastroduodenoscopy, flexible, transoral; with biopsy, single or multiple CPT copyright 2017 [employer]. All rights reserved. The codes documented in this report are preliminary and upon medical biller coder review may be revised to meet current compliance requirements. J Carlos Hinson DO 04/15/2022 1:16:11 PM This report has been signed electronically. Number of Addenda: 0 Note Initiated On: 04/15/2022 12:42 PM
--- NOTE | 2022-04-15 13:17 | OP.CCLET_ITS ---
04/15/2022 Bob Rmey [address] [facility] [place] [address] Re : Upper GI endoscopy procedure for Juana Barrowaver Dear Dr. Remy This procedure was performed on Friday, April 15, 2022. My impressions and recommendations are as follows: Impressions : - Z-line irregular, 35 cm from the incisors. Biopsied. - Gastritis. Biopsied. - No gross lesions in the second portion of the duodenum. Biopsied. Recommendations : - Discharge patient to home. - Resume previous diet. - Continue present medications. - Await pathology results. My findings are described in the full procedure note, which is enclosed. If I can be of further assistance, please feel free to contact me at . Sincerely, J Carlos Hinson, 04/15/2022 1:16:11 PM This report has been signed electronically.
[2022-04-15 13:20] VITALS: BP 110/77; BP 119/87; PULSE 69; RESP 16; O2SAT 97
--- NOTE | 2022-04-15 13:21 | OP.COLON_ITS ---
Patient Name: Juana Abbott Procedure Date: 04/15/2022 12:54 PM Date of : 1975 Age: 46 Procedure: Colonoscopy Indications: Clinically significant diarrhea of unexplained origin Providers: J Carlos Hisnon DO Referring MD: J Carlos Hinson DO Medicines: Monitored Anesthesia Care Patient Profile: This is a 46 year old female. Refer to note in patient chart for documentation of history and physical. Patient has symptoms of acute abdominal cramping and acute epigastric abdominal pain. Last Colonoscopy: none. The patient's first colonoscopy is today. Complications: No immediate complications. Procedure: Pre-Anesthesia Assessment: - Prior to the procedure, a History and Physical was performed, and patient medications and allergies were reviewed. The patient is competent. The risks and benefits of the procedure and the sedation options and risks were discussed with the patient. All questions were answered and informed consent was obtained. Patient identification and proposed procedure were verified by the physician in the pre-procedure area. Mental Status Examination: alert and oriented. Airway Examination: normal oropharyngeal airway and neck mobility. Respiratory Examination: clear to auscultation. CV Examination: normal. Prophylactic Antibiotics: The patient does not require prophylactic antibiotics. Prior Anticoagulants: The patient has taken no previous anticoagulant or antiplatelet agents. After reviewing the risks and benefits, the patient was deemed in satisfactory condition to undergo the procedure. The anesthesia plan was to use monitored anesthesia care (MAC). Immediately prior to administration of medications, the patient was re-assessed for adequacy to receive sedatives. The heart rate, respiratory rate, oxygen saturations, blood pressure, adequacy of pulmonary ventilation, and response to care were monitored throughout the procedure. The physical status of the patient was re-assessed after the procedure. After I obtained informed consent, the scope was passed under direct vision. Throughout the procedure, the patient's blood pressure, pulse, and oxygen saturations were monitored continuously. The colonoscope was introduced through the anus and advanced to the terminal ileum. The colonoscopy was performed without difficulty. The patient tolerated the procedure well. The quality of the bowel preparation was good. Scope In: 12:56:38 PM Scope Withdrawal Time 0 hours 10 minutes 45 seconds Scope Out: 1:10:55 PM Total Procedure Duration Time 0 hours 14 minutes 17 seconds Findings: The perianal and digital rectal examinations were normal. Non-bleeding internal hemorrhoids were found during retroflexion. The hemorrhoids were mild and Grade I (internal hemorrhoids that do not prolapse). The colon (entire examined portion) appeared normal. Biopsies were taken with a cold forceps for histology. Verification of patient identification for the specimen was done. Estimated blood loss was minimal. The terminal ileum appeared normal. Impression: - Non-bleeding internal hemorrhoids. - The entire examined colon is normal. Biopsied. - The examined portion of the ileum was normal. Recommendation: - Discharge patient to home. - Resume previous diet. - Repeat colonoscopy is recommended for screening purposes. The colonoscopy date will be determined after pathology results from today's exam become available for review. - Continue present medications. Procedure Code(s): --- Professional --- 66302, Colonoscopy, flexible; with biopsy, single or multiple CPT copyright 2017 [employer]. All rights reserved. The codes documented in this report are preliminary and upon helpdesk specialist review may be revised to meet current compliance requirements. J Carlos Hinson DO 04/15/2022 1:21:14 PM This report has been signed electronically. Number of Addenda: 0 Note Initiated On: 04/15/2022 12:54 PM
--- NOTE | 2022-04-15 13:22 | OP.CCLET_ITS ---
04/15/2022 Bob Remy [address] [place] [address] Re : Colonoscopy procedure for Juana Abbott Dear Dr. Remy This procedure was performed on Friday, April 15, 2022. My impressions and recommendations are as follows: Impressions : - Non-bleeding internal hemorrhoids. - The entire examined colon is normal. Biopsied. - The examined portion of the ileum was normal. Recommendations : - Discharge patient to home. - Resume previous diet. - Repeat colonoscopy is recommended for screening purposes. The colonoscopy date will be determined after pathology results from today's exam become available for review. - Continue present medications. My findings are described in the full procedure note, which is enclosed. If I can be of further assistance, please feel free to contact me at . Sincerely, J Carlos Hinson, 04/15/2022 1:21:14 PM This report has been signed electronically.
[2022-04-15 13:25] VITALS: BP 112/76; BP 119/87; PULSE 66; RESP 16; O2SAT 100
[2022-04-15 13:30] VITALS: BP 115/79; BP 119/87; PULSE 69; RESP 16; TEMP 36.8; O2SAT 100
[2022-04-15 13:45] VITALS: BP 119/87
== END 2022-04-15 13:59 | disposition home or self-care (01) ==
LOC: EN 11:04 → AC 11:09
PROVIDERS: PCP Family Medicine; Referring Provider Internal Medicine Gastroenterology; Visit Provider Internal Medicine Gastroenterology
PROC: 0DJD8ZZ Inspection of Lower Intestinal Tract, Via Natural or Artificial Opening Endoscopic (ICD-10-PCS; CPT 45378; principal; 2022-04-15 11:55)
DX: K52.9 Noninfective gastroenteritis and colitis, unspecified (principal); K29.70 Gastritis, unspecified, without bleeding; K80.20 Calculus of gallbladder without cholecystitis without obstruction; K30 Functional dyspepsia; K64.0 First degree hemorrhoids
CPT/HCPCS: 43239; 45380; 88305; 88313; 88342; J7120; J2405

== ENCOUNTER 2023-04-07 17:39 | Emergency (ER) | payer OTHER, SELFPAY ==
[2023-04-07 17:39] VITALS: BP 146/96; PULSE 89; RESP 16; TEMP 36.6; O2SAT 100
--- NOTE | 2023-04-07 18:11 | NURSING ---
NO OLD EKGS
--- NOTE | 2023-04-07 18:11 | EX.ED.DYSGE1 ---
HPI History of Present Illness Chief Complaint: Syncope Informant: patient Narrative Narrative: Sent from [facility] for evaluation. Patient feeling sick for the past 3 days. All family members sick. Yesterday while walking the bathroom syncopal episode when she was about to vomit. There is no prodromal chest pains or shortness of breath. No recurrent symptoms today. Reports tested positive for COVID, child tested positive for flu B, another child tested positive for strep. She states mild sore throat. No nausea or vomiting currently. No past medical history. [facility] Medical History Anemia affecting Back pain Chronic low back pain Elevated blood-pressure reading, without diagnosis of hypertension Fatty liver Fecal incontinence Gastric reflux History of Clostridium difficile infection Lumbar spondylolysis Migraines Non-smoker Obesity Urinary incontinence Home Medications NK 04/07/23 [History Last Taken Unknown] Allergy/AdvReac Type Severity Reaction Status Date / Time atropine sulfate Allergy Hives Verified 04/07/23 17:42 [From Lomotil] diphenoxylate HCl Allergy Hives Verified 04/07/23 17:42 [From Lomotil] tioconazole Allergy Swelling Verified 04/07/23 17:42 [From Monistat 1 (tioconazole)] hydrocodone bitartrate AdvReac Vomiting Verified 04/07/23 17:42 [From Vicodin] Family History Mother Anxiety Hypertension Sister Anxiety Hypertension Arthritis Psoriasis Surgical History History of D&C (~04/2015) Hx of appendectomy Hx of section Hx of hysterectomy Social History Smoking Status: Never smoker alcohol intake: never substance use type: does not use ROS ROS ED Constitutional Constitutional ED: Denies chills, fever(s) or sweats Eyes Eyes: Denies change in vision ENT ENT ED: Reports sore throat; Denies dysphagia Cardiovascular Cardiovascular: Denies chest pain, leg edema, palpitations or racing heartbeat Respiratory/Chest Respiratory/Chest: Denies cough, dyspnea or dyspnea on exertion Gastrointestinal Gastrointestinal: Denies abdominal pain, diarrhea, nausea or vomiting Genitourinary Genitourinary ED: Denies dysuria, hematuria or urinary frequency Musculoskeletal Musculoskeletal: Denies back pain, extremity pain or neck pain Integumentary Denies rash or wounds Neurologic Neurologic: Denies headache(s), paresthesias or weakness EXAM Physical Exam Const Vital Signs: 04/07/23 17:39 04/07/23 18:29 04/07/23 19:41 Temperature 97.8 F Temperature Source Temporal Pulse Rate 89 80 Respiratory Rate 16 17 Respiratory Effort Normal Non-Labored Respiratory Pattern Normal Blood Pressure 146/96 H 122/77 H Blood Pressure Mean 112 92 Pulse Ox 100 97 Oxygen Delivery Method Room Air Room Air 04/07/23 20:47 Temperature Temperature Source Pulse Rate 77 Respiratory Rate Respiratory Effort Respiratory Pattern Blood Pressure Blood Pressure Mean Pulse Ox Oxygen Delivery Method Positive well nourished and well developed General Appearance ED: well developed and NAD HEENT Reports moist mucous membranes HEENT Narrative: No posterior pharyngeal erythema no exudates airway patent. normocephalic and atraumatic Eyes PERRL, EOMs intact bilaterally and conjunctivae normal General Eye ED: Yes normal appearance of both eyes Neck no lymphadenopathy and supple General: Negative for tenderness Chest Wall Chest: Negative for tenderness Resp normal respiratory effort and normal air movement Effort and Inspection: symmetric chest movement; Negative for respiratory distress Cardio regular rate, regular rhythm and no murmurs Peripheral Pulses: pulses 2+ throughout GI normal to inspection, nondistended, normoactive bowel sounds and non-tender Palpation: Negative for guarding or rebound tenderness present Back/Spine no CVA tenderness and no thoracic nor lumbar tenderness Extremity normal to inspection General Extremety ED: Negative for edema or tenderness General Extremity: Negative for edema Neuro oriented x3, CN's II-XII intact bilaterally and no sensory deficits noted Neuro Narrative: No focal neurologic deficit Sensorium / Orientation: awake and alert Skin no rashes or lesions noted and no wounds MDM MDM MDM Narrative Medical decision making narrative: Interventions / MDM: Differential diagnosis: Vasovagal syncope, viral syndrome Diagnosis considered but do not suspect: N/A My EKG interpretation: Sinus rate of 88, no ST changes. T wave version leads III and aVF QTc 435. Imaging independently reviewed and interpreted by myself: N/A External documents reviewed: N/A Test considered but not ordered:N/A ED course: Patient no focal deficits on exam. Syncopal episode occurring yesterday likely vasovagal as she felt like she was going to vomit and then went out. This occurred yesterday. No recurrent events since. IV established to check labs IV fluids given. Laboratory work is all stable. COVID and influenza returned negative. Discussed viral syndrome. To continue oral fluids for hydration at home. Outpatient follow-up. All questions were answered. Re-evaluation: stable Disposition discussed with patient/family/significant other: Patient Case discussed with consulting clinician: N/A This note was generated with Smarp dictation software. It may contain incorrect words, spelling, and punctuation that were not noted in checking the note before signing. Lab Data Attestation: I reviewed the patient's lab results. Labs: Laboratory Results - last 24 hr 04/07/23 18:21 WBC 4.6 RBC 4.58 Hgb 13.3 Hct 40.6 MCV 88.6 MCH 29.0 MCHC 32.8 RDW Std Deviation 41.7 RDW Coeff of Elizabeth 12.8 Plt Count 233 MPV 9.3 Immature Gran % (Auto) 0.200 Neut % (Auto) 52.7 Lymph % (Auto) 36.8 [place] % (Auto) 9.4 Eos % (Auto) 0.7 Baso % (Auto) 0.2 Absolute Neuts (auto) 2.4 Absolute Lymphs (auto) 1.68 Nucleated RBC % 0 Sodium 138 Potassium 3.5 Chloride 108 H Carbon Dioxide 27.0 Anion Gap 3 L BUN 9 Creatinine 0.72 Estim Creat Clear Calc 74.46 Est GFR (MDRD) Af Amer 113 Est GFR (MDRD) Non-Af 94 BUN/Creatinine Ratio 12.6 Glucose 94 Calcium 9.1 Discharge Plan Triage Chief Complaint: Syncope ED Provider: Sebastian Burnett Dx/Rx/DC Orders Clinical Impression: Syncope, vasovagal, Acute viral syndrome Instructions: Treatment for Vasovagal Syncope, ED Viral Syndrome (Adult) Prescriptions: No Action NK Primary Care Provider: Bob Remy Referrals: Bob Remy DO [Primary Care Provider] - Activity Restrictions/Additional Instructions: EKG normal. Labs are all stable. COVID and influenza negative. Continue oral fluids for hydration. Use Tylenol or Motrin as needed. Follow-up with your doctor. Disposition Disposition: Home, Self Care Discharge Date/Time: 04/07/23 20:47
[2023-04-07] MEDS: 0.9% Normal Saline (500mL Bag) 500 ML 1000 ML IV (18:28)
[2023-04-07 18:57] LABS: Anion Gap 3 (5-15); BUN 9 mg/dL (7-18); BUN/Creat Ratio 12.6 RATIO (10-20); Calcium,Total 9.1 mg/dL (8.5-10.1); Chloride 108 mmol/L (98-107); Creatinine, Serum 0.72 mg/dL (0.55-1.02); EST Glomerular Filtration Rate 94 mL/min (>60); Est Glom Filt Rate - Afr Amer 113 mL/min (>60); Estimated Creatinine Clearance 74.46 ml/min; Glucose 94 mg/dL (74-106); Potassium 3.5 mmol/L (3.5-5.1); Sodium Level 138 mmol/L (136-145)
[2023-04-07 18:58] LABS: Absolute Lymphocyte Count 1.68 X10^3/uL (0.83-4.51); Absolute Neutrophil Count 2.4 X10^3/uL (2.0-7.7); Basophil# 0.01 X10^3/uL; Basophil% 0.2 % (0-1); Eosinophil# 0.03 X10^3/uL; Eosinophils% 0.7 % (0-5); Hematocrit 40.6 % (37-47); Hemoglobin 13.3 g/dL (12.0-15.0); Lymphocyte # 1.68 X10^3/ul (0.83-4.51); Lymphocyte % 36.8 % (19-41); Mean Corp Hgb Conc 32.8 g/dL (32-36); Mean Corpuscular Volume 88.6 fL (81-99); Mean Platelet Vol. 9.3 fl (6.2-12.0); Monocyte# 0.43 X10^3/uL; Monocyte% 9.4 % (0-10); NRBC Flagged by Analyzer 0 % (0-5); Neutrophil # 2.41 X10^3/uL (2.7-7.7); Neutrophil % 52.7 % (47-70); Platelet Count 233 K/mm3 (150-450); RBC Distribution Width CV 12.8 % (11.6-14.6); RBC Distribution Width SD 41.7 fl (35.1-43.9); Red Blood Count 4.58 M/mm3 (4.2-5.4); White Blood Count 4.6 K/mm3 (4.4-11.0)
--- OUTSIDE RECORDS SUMMARY | 2023-04-07 19:06 | XMS RPT_ITS | CCD ---
Author Name Unknown Address [address] [place] [address] Organization [facility] Care Team Providers Care Lifestyle Block Farmer Name Role Phone Unavailable Primary Care Provider UnavailCasi Bo DO Primary Care Provider CASI REMY Primary Care Unavailable CASI REMY Primary Care Unavailable CASI REMY Primary Care Unavailable Allergies Allergy Classification Reported Allergen(s) Allergy Type Date of Onset Reaction(s) Facility (8 sources) Acetaminophen / HYDROcodone; Translations: [HYDROCODONE-ACETA MINOPHEN] Drug Allergy 08-17-2014 Vomiting [facility] Work Phone: (8 sources) Atropine / Diphenoxylate; Translations: [DIPHENOXYLATE-ATR OPINE] Drug Allergy 08-17-2014 Hives [facility] Work Phone: (4 sources) Atropine; Translations: [ATROPINE] Drug Allergy 07-31-2017 Unknown [facility] (4 sources) Diphenoxylate; Translations: [DIPHENOXYLATE] Drug Allergy 07-31-2017 Unknown [facility] Medications Current Medications Medication Drug Class(es) Dates Sig (Normalized) Sig (Original) amoxicillin 500 mg oral capsule (2 sources) Penicillin-class Antibacterial Start: 09-05-2022 End: 09-15-2022 take 1 capsule by mouth twice daily amoxicillin (AMOXIL) 500 mg capsule Take 1 capsule by mouth twice daily for 10 days. 20 capsule 0 09/05/2022 09/15/2022 Active Completed/Discontinued Medications Medication Drug Class(es) Dates Sig (Normalized) Sig (Original) apremilast 30 mg oral tablet (7 sources) take 1 tablet by marlene once daily apremilast (OTEZLA) 30 mg tablet Take 30 mg by mouth once daily. 0 Active Problems Problem Classification Problem Date Documented Da te Episodic/Chronic Genitourinary symptoms and ill-defined conditions (1 source) Dysuria; Translations: [Painful micturition, unspecified] Episodic Immunizations and screening for infectious disease (1 source) Contact with or exposure to other viral diseases; Translations: [Exposure to COVID-19 virus] 03-11-2023 Episodic Joint disorders and dislocations; trauma-related (1 source) Closed traumatic dislocation of coccyx; Translations: [Dislocation of sacroiliac and sacrococcygeal joint, initial encounter] Episodic Other circulatory disease (1 source) Elevated blood-pressure reading without diagnosis of hypertension; Translations: [Elevated blood-pressure reading, without diagnosis of hypertension] 03-11-2023 Episodic Other injuries and conditions due to external causes (1 source) Injury of coccyx; Translations: [Unspecified injury of lower back, initial encounter] Episodic Other upper respiratory infections (1 source) Bacterial sinusitis; Translations: [Chronic sinusitis, unspecified] 03-11-2023 Chronic Other upper respiratory infections (2 sources) Sore throat symptom; Translations: [Acute pharyngitis, unspecified] Episodic Otitis media and related conditions (2 sources) Acute suppurative otitis media without spontaneous rupture of ear drum; Translations: [Acute suppurative otitis media without spontaneous rupture of ear drum, right ear] Episodic Spondylosis; intervertebral disc disorders; other back problems (1 source) Pain in the coccyx; Translations: [Sacrococcygeal disorders, not elsewhere classified] Episodic Viral infection (1 source) Viral disease; Translations: [Viral infection, unspecified] Episodic Results Test Name Value Interpretation Reference Range Facil ity Vital Signs Date Time Vital Sign Value Performing Clinician Savannah salmeron 03-11-2023 11:31-0500 Body temperature 99.19 [degF] Nargis Castillo APRN.CNP Work Phone: [facility] 03-11-2023 11:31-0500 Body weight 71.67 kg Nargis Castillo APRN.CNP Work Phone: [facility] 03-11-2023 11:31-0500 Diastolic blood pressure 98 mm[Hg] Nargis Castillo APRN.CNP Work Phone: [facility] 03-11-2023 11:31-0500 Heart rate 77 /min Nargis Praisler-Wood CHIEF COMMERCIAL OFFICER.FARROWING WORKER Work Phone: [facility] 03-11-2023 11:31-0500 Respiratory rate 18 /min Nargis Praisler-Wood CHIEF COMMERCIAL OFFICER.FARROWING WORKER Work Phone: [facility] 03-11-2023 11:31-0500 SaO2% (BldA) [Mass fraction] 100 % Nargis Praisler-Wood CHIEF COMMERCIAL OFFICER.FARROWING WORKER Work Phone: [facility] 03-11-2023 11:31-0500 Systolic blood pressure 171 mm[Hg] Nargis Praisler-Wood CHIEF COMMERCIAL OFFICER.FARROWING WORKER Work Phone: [facility] 09-05-2022 11:58-0400 Body temperature 99.9 [degF] Shani Harden CHIEF COMMERCIAL OFFICER.FARROWING WORKER Work Phone: [facility] 09-05-2022 11:58-0400 Body weight 69.76 kg Shani Harden CHIEF COMMERCIAL OFFICER.FARROWING WORKER Work Phone: [facility] 09-05-2022 11:58-0400 Diastolic blood pressure 84 mm[Hg] Shani Harden CHIEF COMMERCIAL OFFICER.FARROWING WORKER Work Phone: [facility] 09-05-2022 11:58-0400 Heart rate 107 /min Shani Harden CHIEF COMMERCIAL OFFICER.FARROWING WORKER Work Phone: [facility] 09-05-2022 11:58-0400 Respiratory rate 18 /min Shani Harden CHIEF COMMERCIAL OFFICER.FARROWING WORKER Work Phone: [facility] 09-05-2022 11:58-0400 SaO2% (BldA) [Mass fraction] 97 % Shani Harden CHIEF COMMERCIAL OFFICER.FARROWING WORKER Work Phone: [facility] 09-05-2022 11:58-0400 Systolic blood pressure 136 mm[Hg] Shani Harden CHIEF COMMERCIAL OFFICER.FARROWING WORKER Work Phone: [facility] 04-29-2022 12:42-0500 Body temperature 98.4 [degF] Kristine Arguello CHIEF COMMERCIAL OFFICER.FARROWING WORKER Work Phone: [facility] 04-29-2022 12:42-0500 Body weight 74.75 kg Kristine Arguello CHIEF COMMERCIAL OFFICER.FARROWING WORKER Work Phone: [facility] 04-29-2022 12:42-0500 Diastolic blood pressure 88 mm[Hg] Kristine Arguello CHIEF COMMERCIAL OFFICER.FARROWING WORKER Work Phone: [facility] 04-29-2022 12:42-0500 Heart rate 100 /min Kristine Jos YOUNG.FARROWING WORKER Work Phone: [facility] 04-29-2022 12:42-0500 Respiratory rate 18 /min Kristine Arguello CHIEF COMMERCIAL OFFICER.FARROWING WORKER Work Phone: [facility] 04-29-2022 12:42-0500 SaO2% (BldA) [Mass fraction] 99 % Kristine Arguello APRN.FARROWING WORKER Work Phone: [facility] 04-29-2022 12:42-0500 Systolic blood pressure 126 mm[Hg] Kristine Arguello CHIEF COMMERCIAL OFFICER.FARROWING WORKER Work Phone: [facility] 04-26-2022 10:16-0500 Body temperature 97.9 [degF] Norah Denbow PA-C Work Phone: [facility] 04-26-2022 10:16-0500 Body weight 73.48 kg Norah Denbow PA-C Work Phone: [facility] 04-26-2022 10:16-0500 Diastolic blood pressure 64 mm[Hg] Norah Denbow PA-C Work Phone: [facility] 04-26-2022 10:16-0500 Heart rate 102 /min Norah Denbow PA-C Work Phone: [facility] 04-26-2022 10:16-0500 Respiratory rate 18 /min Norah Denbow PA-C Work Phone: [facility] 04-26-2022 10:16-0500 SaO2% (BldA) [Mass fraction] 100 % Norah Denbow PA-C Work Phone: [facility] 04-26-2022 10:16-0500 Systolic blood pressure 118 mm[Hg] Norah KIDD-C Work Phone: [facility] 01-14-2022 09:59-0400 Body height 154.9 cm Gerry Arteaga MD Work Phone: [facility] 01-14-2022 09:59-0400 Body weight 76.77 kg Gerry Arteaga MD Work Phone: [facility] 01-14-2022 09:59-0400 Diastolic blood pressure 93 mm[Hg] Gerry Arteaga MD Work Phone: [facility] 01-14-2022 09:59-0400 Heart rate 85 /min Gerry Arteaga MD Work Phone: [facility] 01-14-2022 09:59-0400 Respiratory rate 20 /min Gerry Arteaga MD Work Phone: [facility] 01-14-2022 09:59-0400 Systolic blood pressure 133 mm[Hg] Gerry Arteaga MD Work Phone: [facility] 12-31-2021 09:58-0400 Body temperature 98.2 [degF] Horace Pendlebury CHIEF COMMERCIAL OFFICER.FARROWING WORKER Work Phone: [facility] 12-31-2021 09:58-0400 Body weight 77.2 kg Horace Pendsofia CHIEF COMMERCIAL OFFICER.FARROWING WORKER Work Phone: [facility] 12-31-2021 09:58-0400 Diastolic blood pressure 80 mm[Hg] Horace Pendlebury CHIEF COMMERCIAL OFFICER.FARROWING WORKER Work Phone: [facility] 12-31-2021 09:58-0400 Heart rate 76 /min Horace Pendlebury CHIEF COMMERCIAL OFFICER.FARROWING WORKER Work Phone: [facility] 12-31-2021 09:58-0400 Respiratory rate 18 /min Horace Pendlebury CHIEF COMMERCIAL OFFICER.FARROWING WORKER Work Phone: [facility] 12-31-2021 09:58-0400 SaO2% (BldA) [Mass fraction] 99 % Horace Pendlealbin CHIEF COMMERCIAL OFFICER.FARROWING WORKER Work Phone: [facility] 12-31-2021 09:58-0400 Systolic blood pressure 128 mm[Hg] Horace Pendlealbin CHIEF COMMERCIAL OFFICER.FARROWING WORKER Work Phone: [facility] 10-06-2021 11:47-0400 Body temperature 97.81 [degF] Horace Erlinda CHIEF COMMERCIAL OFFICER.FARROWING WORKER Work Phone: [facility] 10-06-2021 11:47-0400 Body weight 78.02 kg Horace Coffey CHIEF COMMERCIAL OFFICER.FARROWING WORKER Work Phone: [facility] 10-06-2021 11:47-0400 Diastolic blood pressure 80 mm[Hg] Horace Gamaliellebury CHIEF COMMERCIAL OFFICER.FARROWING WORKER Work Phone: [facility] 10-06-2021 11:47-0400 Heart rate 75 /min Horace Coffey CHIEF COMMERCIAL OFFICER.FARROWING WORKER Work Phone: [facility] 10-06-2021 11:47-0400 Respiratory rate 16 /min Horace Erlinda CHIEF COMMERCIAL OFFICER.FARROWING WORKER Work Phone: [facility] 10-06-2021 11:47-0400 SaO2% (BldA) [Mass fraction] 98 % Horace Coffey CHIEF COMMERCIAL OFFICER.FARROWING WORKER Work Phone: [facility] 10-06-2021 11:47-0400 Systolic blood pressure 122 mm[Hg] Horace Alstonlealbin CHIEF COMMERCIAL OFFICER.FARROWING WORKER Work Phone: [facility] Encounters Encounter Date Encounter Type Care Provider Facility Start: 03-11-2023 End: 03-11-2023 ambulatory [facility] Facility:[facility] Start: 03-11-2023 End: 03-11-2023 Patient encounter procedure Nargis Castillo APRN.FARROWING WORKER Work Phone: [facility] Procedures Date Procedure Procedure Detail Performing Clinician Start: 09-05-2022 STREP A MOLECULAR (POC) Nargis Castillo APRN.FARROWING WORKER Work Phone: Start: 04-26-2022 STREP A MOLECULAR (POC) Laura Mauricio PA-C Work Phone: Start: 10-06-2021 Urnls dip stick/tabl et rgnt auto w/o microscopy Kristine Arguello APRN.FARROWING WORKER Work Phone: Plan of Treatment Date Care Activity Detail Author Start: 04-26-2024 Urine microalbumin profile DTaP,Tdap,Td Vaccine (2 - Td or Tdap) [facility] Start: 12-05-2022 Covid-19 Vaccine () Covid-19 Vaccine () [facility] Start: 12-05-2022 Influenza vaccination [facility] Start: 2022 Cologuard (FIT-DNA) Cologuard (FIT-DNA) [facility] Start: 2022 Colonoscopy Colonoscopy [facility] Start: 2022 Colorectal Cancer Screening Colorectal Cancer Screening [facility] Start: [address] Colonography [facility] Start: 2022 Diabetes Screening Diabetes Screening [facility] Start: 2022 Fecal Occult Blood Fecal Occult Blood [facility] Start: 2022 Lipid 1996 panel - Serum or Plasma Lipid Screening [facility] Start: 2022 Sigmoidoscopy Sigmoidoscopy [facility] Start: 04-26-2022 End: 05-10-2022 Influenza virus A and B RNA and SARS-CoV-2 (COVID-19) N gene panel - Respiratory specimen by VALENCIA with probe detection [facility] Work Phone: Payers Date Payer Category Payer Unknown MMO MMO [employer] [id number] 2018-Present [phone] [address] [place] [address] PPO [id number] 2018 Unknown [id number] 2018 Unknown [id number] Social History Date Type Detail Facility Start: 08-17-2014 Tobacco smoking stat us TNIS Never smoked tobacco [facility] Work Phone: Start: 08-17-2014 Tobacco use and exposure Smokeless tobacco non-user [facility] Work Phone: Start: 10-06-2021 [facility] Start: 1975 Sex Assigned At Not on file [facility] Start: 09-26-2021 End: 12-31-2021 Exposure to SARS-CoV-2 (event) Not sure [facility] Start: 12-31-2021 End: 03-11-2023 Alcohol intake Lifetime non-drinker (finding) [facility] Start: 03-14-2020 End: 03-11-2023 History of Social function [facility] Start: 03-14-2020 End: 03-11-2023 Tobacco use panel [facility] Adult Depression Screening Assessment 0 [facility] Clinical Notes 10-06-2021 to 03-11-2023 Nargis Castillo APRN.FARROWING WORKER - 03/11/2023 11:40 AM ESTPatient InstructionsShani Harden APRN.FARROWING WORKER - 09/05/2022 12:07 PM Bridger Arguello APRN.FARROWING WORKER - 04/29/2022 12:57 PM ESTPatient Instructions Note Date & Type Note Facility 03-11-2023 Note HNO ID: [id number] Author: Nargis Castillo APRN.FARROWING WORKER Service: ? Author Type: Nurse Practitioner Type: Progress Notes Filed: 03/11/2023 12:18 PM Note Text: Subjective Cough Associated symptoms include ear pain and headaches. Pertinent negatives include no chills, no sore throat and no myalgias. Viktor Abbott is a 47 year old female who presents with 2 weeks of cough, congestion and headache. She has recently developed ear pain in both ears. She was exposed to COVID in the past week. She took a COVID test at home which was negative. She has been taking OTC cough and sinus headache medication, as well as her migraine medication. Review of Systems Constitutional: Negative for chills and fever. HENT: Positive for congestion and ear pain. Negative for sore throat. Respiratory: Positive for cough and sputum production. Cardiovascular: Negative. Musculoskeletal: Negative for myalgias. Neurological: Positive for headaches. BP 171/98 Pulse 77 Temp 37.3 ?C (99.2 ?F) Resp 18 Wt 71.7 kg (158 lb) SpO2 100% BMI 29.85 kg/m? No past medical history on file. No past surgical history on file. ALLERGIES Atropine, Diphenoxylate, Lomotil [Diphenoxylate-Atropine], and Vicodin [Hydrocodone-Acetaminophen] MEDICATIONS rizatriptan ([employer]) 10 mg disintegrating tablet 1 tablet orally one time may repeat after 2 hours if headache persists up to 30 mg per day as needed amoxicillin-clavulanate potassium (AUGMENTIN) 875-125 mg per tablet Take 1 tablet by mouth two times a day for 7 days. loratadine (CLARITIN) 10 mg tablet Take 10 mg by mouth once daily. (Patient not taking: Reported on 03/11/2023) DULoxetine (CYMBALTA) 30 mg capsule TAKE 1 CAPSULE BY MOUTH EVERY DAY FOR 28 DAYS (Patient not taking: Reported on 12/07/2022) atomoxetine (STRATTERA) 40 mg capsule TAKE 1 CAPSULE BY MOUTH IN THE MORNING FOR 3 DAYS then TAKE 1 TABLET BY MOUTH TWICE DAILY (Patient not taking: Reported on 03/11/2023) omeprazole (PRILOSEC) 20 mg capsule Take by mouth. (Patient not taking: Reported on 12/07/2022) LIDOCAINE VISCOUS 2 % solution Take 15 mL by mouth every 3 hours as needed for pain. (Patient not taking: Reported on 09/05/2022) meloxicam (MOBIC) 7.5 mg tablet Take 7.5 mg by mouth once daily. (Patient not taking: Reported on 12/07/2022) FISH OIL-DHA-EPA ORAL Take by mouth. (Patient not taking: Reported on 04/26/2022) MULTI-VITAMIN ORAL Take by mouth. (Patient not taking: Reported on 04/26/2022) Clobetasol Propionate (TEMOVATE) 0.05 % external solution Apply to the affected areas scalp at bedtime for 3 weeks then apply as needed for flares (Patient not taking: Reported on 10/06/2021) clobetasol (TEMOVATE) 0.05 % cream Apply to the hands twice a day x 2 weeks then use as needed for flares (Patient not taking: Reported on 10/06/2021) apremilast (OTEZLA) 30 mg tablet Take 30 mg by mouth once daily. (Patient not taking: Reported on 10/06/2021 ) progesterone micronized (PROMETRIUM) 100 mg capsule (Patient not taking: Reported on 06/27/2020 ) mupirocin (BACTROBAN) 2 % cream Apply 1 application to affected area three times daily. (Patient not taking: Reported on 06/21/2018 ) desonide (DESOWEN) 0.05 % cream Apply 2 times daily left elbow (Patient not taking: Reported on 06/21/2018 ) Nixyotns-Wq-Joz-Fe-FA ( FORMULA) tab Take 1 tablet by mouth once daily. (Patient not taking: Reported on 06/27/2020 ) [place]-3 Fatty Acids-Vitamin E (FISH OIL) 1,000 mg cap Take 2 capsules by mouth once daily. (Patient not taking: Reported on 06/27/2020 ) No family history on file. Social History Tobacco Use Smoking status: Never Smokeless tobacco: Never Substance Use Topics Alcohol use: Never Drug use: Never Objective Physical Exam Vitals and nursing note reviewed. Constitutional: Appearance: Normal appearance. HENT: Right Ear: Ear canal and external ear normal. Tympanic membrane is injected. Left Ear: Ear canal and external ear normal. Tympanic membrane is injected and erythematous. Nose: Mucosal edema, congestion and rhinorrhea present. Mouth/Throat: Mouth: Mucous membranes are moist. Pharynx: Oropharynx is clear. Uvula midline. No oropharyngeal exudate or posterior oropharyngeal erythema. Cardiovascular: Rate and Rhythm: Normal rate and regular rhythm. Heart sounds: Normal heart sounds. Pulmonary: Effort: Pulmonary effort is normal. No respiratory distress. Breath sounds: Normal breath sounds. No wheezing or rales. Musculoskeletal: Cervical back: Neck supple. Lymphadenopathy: Cervical: No cervical adenopathy. Skin: General: Skin is warm and dry. Findings: No erythema or rash. Neurological: Mental Status: She is alert. ASSESSMENT/PLAN: 1. Bacterial sinusitis - ICD9: 473.9, 041.9, ICD10: J32.9, B96.89 (primary diagnosis) - Will begin treatment with as per antibiotic as written, see orders - Supportive care with plenty of fluids, rest, a (more content not included)... [facility] 03-11-2023 History of Present illness Narrative Subjective Cough Associated symptoms include ear pain and headaches. Pertinent negatives include no chills, no sore throat and no myalgias. Viktor Abbott is a 47 year old female who presents with 2 weeks of cough, congestion and headache. She has recently developed ear pain in both ears. She was exposed to COVID in the past week. She took a COVID test at home which was negative. She has been taking OTC cough and sinus headache medication, as well as her migraine medication. Review of Systems Constitutional: Negative for chills and fever. HENT: Positive for congestion and ear pain. Negative for sore throat. Respiratory: Positive for cough and sputum production. Cardiovascular: Negative. Musculoskeletal: Negative for myalgias. Neurological: Positive for headaches. BP 171/98 Pulse 77 Temp 37.3 C (99.2 F) Resp 18 Wt 71.7 kg (158 lb) SpO2 100% BMI 29.85 kg/m No past medical history on file. No past surgical history on file. ALLERGIES Atropine, Diphenoxylate, Lomotil [Diphenoxylate-Atropine], and Vicodin [Hydrocodone-Acetaminophen] MEDICATIONS rizatriptan ([employer]) 10 mg disintegrating tablet 1 tablet orally one time may repeat after 2 hours if headache persists up to 30 mg per day as needed amoxicillin-clavulanate potassium (AUGMENTIN) 875-125 mg per tablet Take 1 tablet by mouth two times a day for 7 days. loratadine (CLARITIN) 10 mg tablet Take 10 mg by mouth once daily. (Patient not taking: Reported on 03/11/2023) DULoxetine (CYMBALTA) 30 mg capsule TAKE 1 CAPSULE BY MOUTH EVERY DAY FOR 28 DAYS (Patient not taking: Reported on 12/07/2022) atomoxetine (STRATTERA) 40 mg capsule TAKE 1 CAPSULE BY MOUTH IN THE MORNING FOR 3 DAYS then TAKE 1 TABLET BY MOUTH TWICE DAILY (Patient not taking: Reported on 03/11/2023) omeprazole (PRILOSEC) 20 mg capsule Take by mouth. (Patient not taking: Reported on 12/07/2022) LIDOCAINE VISCOUS 2 % solution Take 15 mL by mouth every 3 hours as needed for pain. (Patient not taking: Reported on 09/05/2022) meloxicam (MOBIC) 7.5 mg tablet Take 7.5 mg by mouth once daily. (Patient not taking: Reported on 12/07/2022) FISH OIL-DHA-EPA ORAL Take by mouth. (Patient not taking: Reported on 04/26/2022) MULTI-VITAMIN ORAL Take by mouth. (Patient not taking: Reported on 04/26/2022) Clobetasol Propionate (TEMOVATE) 0.05 % external solution Apply to the affected areas scalp at bedtime for 3 weeks then apply as needed for flares (Patient not taking: Reported on 10/06/2021) clobetasol (TEMOVATE) 0.05 % cream Apply to the hands twice a day x 2 weeks then use as needed for flares (Patient not taking: Reported on 10/06/2021) apremilast (OTEZLA) 30 mg tablet Take 30 mg by mouth once daily. (Patient not taking: Reported on 10/06/2021 ) progesterone micronized (PROMETRIUM) 100 mg capsule (Patient not taking: Reported on 06/27/2020 ) mupirocin (BACTROBAN) 2 % cream Apply 1 application to affected area three times daily. (Patient not taking: Reported on 06/21/2018 ) desonide (DESOWEN) 0.05 % cream Apply 2 times daily left elbow (Patient not taking: Reported on 06/21/2018 ) Udiryxze-Bt-Klc-Fe-FA ( FORMULA) tab Take 1 tablet by mouth once daily. (Patient not taking: Reported on 06/27/2020 ) [place]-3 Fatty Acids-Vitamin E (FISH OIL) 1,000 mg cap Take 2 capsules by mouth once daily. (Patient not taking: Reported on 06/27/2020 ) No family history on file. Social History Tobacco Use Smoking status: Never Smokeless tobacco: Never Substance Use Topics Alcohol use: Never Drug use: Never Objective Physical Exam Vitals and nursing note reviewed. Constitutional: Appearance: Normal appearance. HENT: Right Ear: Ear canal and external ear normal. Tympanic membrane is injected. Left Ear: Ear canal and external ear normal. Tympanic membrane is injected and erythematous. Nose: Mucosal edema, congestion and rhinorrhea present. Mouth/Throat: Mouth: Mucous membranes are moist. Pharynx: Oropharynx is clear. Uvula midline. No oropharyngeal exudate or posterior oropharyngeal erythema. Cardiovascular: Rate and Rhythm: Normal rate and regular rhythm. Heart sounds: Normal heart sounds. Pulmonary: Effort: Pulmonary effort is normal. No respiratory distress. Breath sounds: Normal breath sounds. No wheezing or rales. Musculoskeletal: Cervical back: Neck supple. Lymphadenopathy: Cervical: No cervical adenopathy. Skin: General: Skin is warm and dry. Findings: No erythema or rash. Neurological: Mental Status: She is alert. ASSESSMENT/PLAN: 1. Bacterial sinusitis - ICD9: 473.9, 041.9, ICD10: J32.9, B96.89 (primary diagnosis) - Will begin treatment with as per antibiotic as written, see orders - Supportive care with plenty of fluids, rest, and analgesia prn. - AMOXICILLIN 875 MG-POTASSIUM CLAVULANATE 125 MG TABLET - may also use flonase nasal spray 2. Other acute nonsuppurative otitis media of both ears, recurrence not specified - ICD9: 381.00, ICD10: H65.193 - Will begin treatment with as per antibiotic as written, see orders - Supportive care with plenty of fluids, rest, and analgesia prn. - AMOXICILLIN 875 MG-POTASSIUM CLAVULANATE 125 MG TABLET 3. Elevated BP without diagnosis of hypertension - ICD9: 796.2, ICD10: R03.0 - Recommend home blood pressure monitoring, to bring results in on next visit - do not take decongestants unless it is Coricidin - Goal of BP <130/80 4. Exposure to COVID-19 virus - ICD9: V01.79, ICD10: Z20.822 - COVID NAAT, UPPER RESPIRATORY, ROUTINE - Follow-up with your PCP in 3-5 days if symptoms have not improved or sooner if symptoms worsen - Discussed red flags and need for immediate medical evaluation if any occur. - Discussed supportive care treatment with fluids, rest and analgesia. - Discussed expected course of illness Nargis Castillo APRN.FARROWING WORKER documented in this encounter [facility] 03-11-2023 Instructions Nargis Castillo APRN.CNP - 03/11/2023 11:40 AM EST ASSESSMENT/PLAN: 1. Bacterial sinusitis - ICD9: 473.9, 041.9, ICD10: J32.9, B96.89 (primary diagnosis) - Will begin treatment with as per antibiotic as written, see orders - Supportive care with plenty of fluids, rest, and analgesia prn. - AMOXICILLIN 875 MG-POTASSIUM CLAVULANATE 125 MG TABLET - may also use flonase nasal spray 2. Other acute nonsuppurative otitis media of both ears, recurrence not specified - ICD9: 381.00, ICD10: H65.193 - Will begin treatment with as per antibiotic as written, see orders - Supportive care with plenty of fluids, rest, and analgesia prn. - AMOXICILLIN 875 MG-POTASSIUM CLAVULANATE 125 MG TABLET 3. Elevated BP without diagnosis of hypertension - ICD9: 796.2, ICD10: R03.0 - Recommend home blood pressure monitoring, to bring results in on next visit - do not take decongestants unless it is Coricidin - Goal of BP <130/80 4. Exposure to COVID-19 virus - ICD9: V01.79, ICD10: Z20.822 - COVID NAAT, UPPER RESPIRATORY, ROUTINE - Follow-up with your PCP in 3-5 days if symptoms have not improved or sooner if symptoms worsen - Discussed red flags and need for immediate medical evaluation if any occur. - Discussed supportive care treatment with fluids, rest and analgesia. - Discussed expected course of illness Nargis Castillo APRN.FARROWING WORKER documented in this encounter [facility] 12-07-2022 Note HNO ID: [id number] Author: Kristine Arguello APRN.RAUDEL Service: ? Author Type: Nurse Practitioner Type: Progress Notes Filed: 12/07/2022 8:52 AM Note Text: CC: Patient presents with: UTI: Lower abd pain, urine odor, burning with urination x3 days HPI Viktor Abbott is a 47 year old female who presents with complaint of possible UTI. These symptoms have been present for 3 days. Associated symptoms: burning, foul smelling urine, and pressure Denies: fever, chills, sweats, flank pain, and abnormal vaginal discharge Treatments: nothing The ROS was otherwise negative. PMH, Medications, labs, allergies, and recent past visits with PCP were reviewed and updated as able. PHYSICAL EXAM: BP 136/93 Pulse 96 Temp 36.6 ?C (97.9 ?F) Resp 18 Wt 68.8 kg (151 lb 9.6 oz) SpO2 100% BMI 28.64 kg/m? General: Well appearing and alert CV: Regular rate and rhythm without obvious murmur Lungs: clear to auscultation bilaterally Back: straight and symmetric Abdomen: soft, nontender, nondistended No past medical history on file. No past surgical history on file. ALLERGIES Atropine, Diphenoxylate, Lomotil [Diphenoxylate-Atropine], and Vicodin [Hydrocodone-Acetaminophen] MEDICATIONS loratadine (CLARITIN) 10 mg tablet Take 10 mg by mouth once daily. atomoxetine (STRATTERA) 40 mg capsule TAKE 1 CAPSULE BY MOUTH IN THE MORNING FOR 3 DAYS then TAKE 1 TABLET BY MOUTH TWICE DAILY rizatriptan ([employer]) 10 mg disintegrating tablet 1 tablet orally one time may repeat after 2 hours if headache persists up to 30 mg per day as needed nitrofurantoin monohydrate and macrocrystal (MACROBID) 100 mg capsule Take 1 capsule by mouth twice daily for 5 days. DULoxetine (CYMBALTA) 30 mg capsule TAKE 1 CAPSULE BY MOUTH EVERY DAY FOR 28 DAYS (Patient not taking: Reported on 12/07/2022) omeprazole (PRILOSEC) 20 mg capsule Take by mouth. (Patient not taking: Reported on 12/07/2022) LIDOCAINE VISCOUS 2 % solution Take 15 mL by mouth every 3 hours as needed for pain. (Patient not taking: Reported on 09/05/2022) meloxicam (MOBIC) 7.5 mg tablet Take 7.5 mg by mouth once daily. (Patient not taking: Reported on 12/07/2022) FISH OIL-DHA-EPA ORAL Take by mouth. (Patient not taking: Reported on 04/26/2022) MULTI-VITAMIN ORAL Take by mouth. (Patient not taking: Reported on 04/26/2022) Clobetasol Propionate (TEMOVATE) 0.05 % external solution Apply to the affected areas scalp at bedtime for 3 weeks then apply as needed for flares (Patient not taking: Reported on 10/06/2021) clobetasol (TEMOVATE) 0.05 % cream Apply to the hands twice a day x 2 weeks then use as needed for flares (Patient not taking: Reported on 10/06/2021) apremilast (OTEZLA) 30 mg tablet Take 30 mg by mouth once daily. (Patient not taking: Reported on 10/06/2021 ) progesterone micronized (PROMETRIUM) 100 mg capsule (Patient not taking: Reported on 06/27/2020 ) mupirocin (BACTROBAN) 2 % cream Apply 1 application to affected area three times daily. (Patient not taking: Reported on 06/21/2018 ) desonide (DESOWEN) 0.05 % cream Apply 2 times daily left elbow (Patient not taking: Reported on 06/21/2018 ) Ubcfkmvu-Nb-Cdj-Fe-FA ( FORMULA) tab Take 1 tablet by mouth once daily. (Patient not taking: Reported on 06/27/2020 ) Laneview-3 Fatty Acids-Vitamin E (FISH OIL) 1,000 mg cap Take 2 capsules by mouth once daily. (Patient not taking: Reported on 06/27/2020 ) No family history on file. Social History Tobacco Use Smoking status: Never Smokeless tobacco: Never Substance Use Topics Alcohol use: Never Drug use: Never ASSESSMENT/PLAN: 1. Burning with urination - ICD9: 788.1, ICD10: R30.0 - UA DIP, URINE (POC) - URINE CULTURE - NITROFURANTOIN MONOHYDRATE AND MACROCRYSTAL 100 MG ORAL CAP Prescription instructions reviewed with patient as applicable. Potential red flag symptoms discussed with the patient. Reviewed appropriate action plan to take if red flag symptoms occur. Patient agreeable to treatment plan. Is going on vacation to [place] so if medication needs changed she will pick a pharmacy that is down in [place]. Kristine Arguello APRN.[facility] 09-05-2022 Note HNO ID: [id number] Author: Shani Harden APRN.FARROWING WORKER Service: ? Author Type: Nurse Practitioner Type: Progress Notes Filed: 09/05/2022 12:20 PM Note Text: This note was created using Beepiriter. Subjective Viktor Abbott is a 46 year old female. 46 year old female with PMH chronic lower back pain, ADHD and GERD presents for complaints of sore throat. Acute onset one day ago +sore throat +headache +enlarge lymph nodes. Denies cough. Denies SOB. Denies inability to handle secretions. Denies difficulty swallowing. Denies N/V/D. The history is provided by the patient. No bilingual speech language pathologist was used. Sore Throat This is a new problem. The current episode started yesterday. The problem has been gradually worsening. Neither side of throat is experiencing more pain than the other. The maximum temperature recorded prior to her arrival was 100.4 - 100.9 F. The pain is at a severity of 7/10. The pain is moderate. Associated symptoms include headaches and swollen glands. Pertinent negatives include no abdominal pain, congestion, coughing, diarrhea, drooling, ear discharge, ear pain, hoarse voice, plugged ear sensation, neck pain, shortness of breath, stridor, trouble swallowing or vomiting. She has had no exposure to strep or mono. She has tried nothing for the symptoms. The treatment provided no relief. History reviewed. No pertinent past medical history. No past surgical history on file. ALLERGIES Atropine, Diphenoxylate, Lomotil [Diphenoxylate-Atropine], and Vicodin [Hydrocodone-Acetaminophen] MEDICATIONS DULoxetine (CYMBALTA) 30 mg capsule TAKE 1 CAPSULE BY MOUTH EVERY DAY FOR 28 DAYS atomoxetine (STRATTERA) 40 mg capsule TAKE 1 CAPSULE BY MOUTH IN THE MORNING FOR 3 DAYS then TAKE 1 TABLET BY MOUTH TWICE DAILY omeprazole (PRILOSEC) 20 mg capsule Take by mouth. meloxicam (MOBIC) 7.5 mg tablet Take 7.5 mg by mouth once daily. rizatriptan ([employer]) 10 mg disintegrating tablet 1 tablet orally one time may repeat after 2 hours if headache persists up to 30 mg per day as needed amoxicillin (AMOXIL) 500 mg capsule Take 1 capsule by mouth twice daily for 10 days. LIDOCAINE VISCOUS 2 % solution Take 15 mL by mouth every 3 hours as needed for pain. (Patient not taking: Reported on 09/05/2022) FISH OIL-DHA-EPA ORAL Take by mouth. (Patient not taking: Reported on 04/26/2022) MULTI-VITAMIN ORAL Take by mouth. (Patient not taking: Reported on 04/26/2022) Clobetasol Propionate (TEMOVATE) 0.05 % external solution Apply to the affected areas scalp at bedtime for 3 weeks then apply as needed for flares (Patient not taking: Reported on 10/06/2021) clobetasol (TEMOVATE) 0.05 % cream Apply to the hands twice a day x 2 weeks then use as needed for flares (Patient not taking: Reported on 10/06/2021) apremilast (OTEZLA) 30 mg tablet Take 30 mg by mouth once daily. (Patient not taking: Reported on 10/06/2021 ) progesterone micronized (PROMETRIUM) 100 mg capsule (Patient not taking: Reported on 06/27/2020 ) mupirocin (BACTROBAN) 2 % cream Apply 1 application to affected area three times daily. (Patient not taking: Reported on 06/21/2018 ) desonide (DESOWEN) 0.05 % cream Apply 2 times daily left elbow (Patient not taking: Reported on 06/21/2018 ) Decgzuln-Li-Cus-Fe-FA ( FORMULA) tab Take 1 tablet by mouth once daily. (Patient not taking: Reported on 06/27/2020 ) Laneview-3 Fatty Acids-Vitamin E (FISH OIL) 1,000 mg cap Take 2 capsules by mouth once daily. (Patient not taking: Reported on 06/27/2020 ) No family history on file. Social History Tobacco Use Smoking status: Never Smokeless tobacco: Never Substance Use Topics Alcohol use: Never Drug use: Never Review of Systems Constitutional: Positive for fatigue and fever. Negative for chills. HENT: Positive for sore throat. Negative for congestion, drooling, ear discharge, ear pain, hoarse voice and trouble swallowing. Eyes: Negative for photophobia, pain, discharge, redness, itching and visual disturbance. Respiratory: Negative for cough, shortness of breath and stridor. Cardiovascular: Negative for chest pain, palpitations and leg swelling. Gastrointestinal: Negative for abdominal pain, diarrhea and vomiting. Musculoskeletal: Negative for neck pain. Skin: Negative for color change, pallor, rash and wound. Allergic/Immunologic: Negative for environmental allergies, food allergies and immunocompromised state. Neurological: Positive for headaches. Negative for dizziness, facial asymmetry, light-headedness and numbness. Hematological: Negative for adenopathy. Does not bruise/bleed easily. Psychiatric/Behavioral: Negative for agitation and behavioral problems. Objective BP 136/84 Pulse 107 Temp 37.7 ?C (99.9 ?F) (Tympanic) Resp 18 Wt 69.8 kg (153 lb 12.8 oz) SpO2 97% BMI 29.06 kg/m? Physical Exam Vitals and nursing note reviewed. Constitutional: General: She is not in acu (more content not included)... [facility] 09-05-2022 History of Present illness Narrative This note was created using Adianater. Subjective Viktor Abbott is a 46 year old female. 46 year old female with PMH chronic lower back pain, ADHD and GERD presents for complaints of sore throat. Acute onset one day ago +sore throat +headache +enlarge lymph nodes. Denies cough. Denies SOB. Denies inability to handle secretions. Denies difficulty swallowing. Denies N/V/D. The history is provided by the patient. No bilingual speech language pathologist was used. Sore Throat This is a new problem. The current episode started yesterday. The problem has been gradually worsening. Neither side of throat is experiencing more pain than the other. The maximum temperature recorded prior to her arrival was 100.4 - 100.9 F. The pain is at a severity of 7/10. The pain is moderate. Associated symptoms include headaches and swollen glands. Pertinent negatives include no abdominal pain, congestion, coughing, diarrhea, drooling, ear discharge, ear pain, hoarse voice, plugged ear sensation, neck pain, shortness of breath, stridor, trouble swallowing or vomiting. She has had no exposure to strep or mono. She has tried nothing for the symptoms. The treatment provided no relief. History reviewed. No pertinent past medical history. No past surgical history on file. ALLERGIES Atropine, Diphenoxylate, Lomotil [Diphenoxylate-Atropine], and Vicodin [Hydrocodone-Acetaminophen] MEDICATIONS DULoxetine (CYMBALTA) 30 mg capsule TAKE 1 CAPSULE BY MOUTH EVERY DAY FOR 28 DAYS atomoxetine (STRATTERA) 40 mg capsule TAKE 1 CAPSULE BY MOUTH IN THE MORNING FOR 3 DAYS then TAKE 1 TABLET BY MOUTH TWICE DAILY omeprazole (PRILOSEC) 20 mg capsule Take by mouth. meloxicam (MOBIC) 7.5 mg tablet Take 7.5 mg by mouth once daily. rizatriptan ([employer]) 10 mg disintegrating tablet 1 tablet orally one time may repeat after 2 hours if headache persists up to 30 mg per day as needed amoxicillin (AMOXIL) 500 mg capsule Take 1 capsule by mouth twice daily for 10 days. LIDOCAINE VISCOUS 2 % solution Take 15 mL by mouth every 3 hours as needed for pain. (Patient not taking: Reported on 09/05/2022) FISH OIL-DHA-EPA ORAL Take by mouth. (Patient not taking: Reported on 04/26/2022) MULTI-VITAMIN ORAL Take by mouth. (Patient not taking: Reported on 04/26/2022) Clobetasol Propionate (TEMOVATE) 0.05 % external solution Apply to the affected areas scalp at bedtime for 3 weeks then apply as needed for flares (Patient not taking: Reported on 10/06/2021) clobetasol (TEMOVATE) 0.05 % cream Apply to the hands twice a day x 2 weeks then use as needed for flares (Patient not taking: Reported on 10/06/2021) apremilast (OTEZLA) 30 mg tablet Take 30 mg by mouth once daily. (Patient not taking: Reported on 10/06/2021 ) progesterone micronized (PROMETRIUM) 100 mg capsule (Patient not taking: Reported on 06/27/2020 ) mupirocin (BACTROBAN) 2 % cream Apply 1 application to affected area three times daily. (Patient not taking: Reported on 06/21/2018 ) desonide (DESOWEN) 0.05 % cream Apply 2 times daily left elbow (Patient not taking: Reported on 06/21/2018 ) Vizwtyre-Yo-Pyu-Fe-FA ( FORMULA) tab Take 1 tablet by mouth once daily. (Patient not taking: Reported on 06/27/2020 ) Laneview-3 Fatty Acids-Vitamin E (FISH OIL) 1,000 mg cap Take 2 capsules by mouth once daily. (Patient not taking: Reported on 06/27/2020 ) No family history on file. Social History Tobacco Use Smoking status: Never Smokeless tobacco: Never Substance Use Topics Alcohol use: Never Drug use: Never Review of Systems Constitutional: Positive for fatigue and fever. Negative for chills. HENT: Positive for sore throat. Negative for congestion, drooling, ear discharge, ear pain, hoarse voice and trouble swallowing. Eyes: Negative for photophobia, pain, discharge, redness, itching and visual disturbance. Respiratory: Negative for cough, shortness of breath and stridor. Cardiovascular: Negative for chest pain, palpitations and leg swelling. Gastrointestinal: Negative for abdominal pain, diarrhea and vomiting. Musculoskeletal: Negative for neck pain. Skin: Negative for color change, pallor, rash and wound. Allergic/Immunologic: Negative for environmental allergies, food allergies and immunocompromised state. Neurological: Positive for headaches. Negative for dizziness, facial asymmetry, light-headedness and numbness. Hematological: Negative for adenopathy. Does not bruise/bleed easily. Psychiatric/Behavioral: Negative for agitation and behavioral problems. Objective BP 136/84 Pulse 107 Temp 37.7 C (99.9 F) (Tympanic) Resp 18 Wt 69.8 kg (153 lb 12.8 oz) SpO2 97% BMI 29.06 kg/m Physical Exam Vitals and nursing note reviewed. Constitutional: General: She is not in acute distress. Appearance: Normal appearance. She is normal weight. She is not ill-appearing, toxic-appearing or diaphoretic. HENT: Head: Normocephalic and atraumatic. Right Ear: Ear canal and external ear normal. Left Ear: Ear canal and external ear normal. Nose: Nose normal. No congestion or rhinorrhea. Mouth/Throat: Mouth: Mucous membranes are moist. Pharynx: Posterior oropharyngeal erythema (2 + enlarged bilateral tonsils. Uvula midline) present. No oropharyngeal exudate. Eyes: General: Right eye: No discharge. Left eye: No discharge. Extraocular Movements: Extraocular movements intact. Conjunctiva/sclera: Conjunctivae normal. Pupils: Pupils are equal, round, and reactive to light. Cardiovascular: Rate and Rhythm: Normal rate and regular rhythm. Pulses: Normal pulses. Heart sounds: Normal heart sounds. No murmur heard. No friction rub. Pulmonary: Effort: Pulmonary effort is normal. No respiratory distress. Breath sounds: Normal breath sounds. No stridor. No wheezing, rhonchi or rales. Chest: Chest wall: No tenderness. Abdominal: General: Abdomen is flat. There is no distension. Palpations: Abdomen is soft. There is no mass. Tenderness: There is no abdominal tenderness. There is no right CVA tenderness, left CVA tenderness, guarding or rebound. Hernia: No hernia is present. Musculoskeletal: General: No swelling, tenderness, deformity or signs of injury. Normal range of motion. Cervical back: Normal range of motion and neck supple. No rigidity. Right lower leg: No edema. Left lower leg: No edema. Lymphadenopathy: Cervical: Cervical adenopathy present. Skin: General: Skin is warm and dry. Capillary Refill: Capillary refill takes less than 2 seconds. Coloration: Skin is not jaundiced or pale. Findings: No bruising, erythema, lesion or rash. Neurological: General: No focal deficit present. Mental Status: She is alert and oriented to person, place, and time. Cranial Nerves: No cranial nerve deficit. Sensory: No sensory deficit. Motor: No weakness. Coordination: Coordination normal. Gait: Gait normal. Psychiatric: Mood and Affect: Mood normal. Behavior: Behavior normal. Thought Content: Thought content normal. Judgment: Judgment normal. Assessment and Plan ASSESSMENT/PLAN: 1. Strep pharyngitis - ICD9: 034.0, ICD10: J02.0 - suspect strep - Alere Strep Test POSITIVE, no culture pending - antibiotic as written - Discussed supportive care treatment with fluids, rest and analgesia. - The patient may also use OTC cough and cold meds as needed and warm salt water gargles, throat lozenges and/or OTC throat spray as needed. - Contagious dz precautions discussed- including considered contagious until on antibiotics for 24 hours - The patient should follow up in 3-5 days if symptoms persist or worsen - Call back if drooling, increased temperature, symptoms of dehydration and/or still sick in one week - STREP A MOLECULAR (POC) Shani Harden APRN.RAUDEL documented in this encounter [facility] 01-24-2023 Note HNO ID: [id number] Author: Kristine Arguello APRN.FARROWING WORKER Service: ? Author Type: Nurse Practitioner Type: Progress Notes Filed: 04/29/2022 12:59 PM Note Text: CC: Patient presents with: Ear Pain: Pt reported bilateral ear pain, decreased hearing, x1 day. HPI: Viktor Abbott is a 46 year old female who presents to the office with complaint of head congestion, cough, nonproductive, sore throat, sinus symptoms, and ear symptoms ear is getting worse over the last day.. Symptoms are worsening Associated symptoms includes ear pain. Denies fever, nausea, vomiting , and diarrhea. Treatments tried include nothing so far. with no relief of symptoms. Sick contacts: unknown. History of asthma, frequent episodes of bronchitis, chronic bronchitis, bronchiectasis or COPD: No Smoker: No Seasonal/environmental allergies: No The ROS is otherwise negative. The patient's pmh, medications, allergies, and past visits are reviewed. PHYSICAL EXAM: BP 126/88 Pulse 100 Temp 36.9 ?C (98.4 ?F) (Tympanic) Resp 18 Wt 74.8 kg (164 lb 12.8 oz) SpO2 99% BMI 31.14 kg/m? General appearance: alert, cooperative, pleasant, in no acute distress Head: Normocephalic Eyes: EOM's intact, conjunctiva pink and moist, no icterus, sclera white, non-injected Ears: Right ear: External ear/canal- Normal, TM - erythematous, bulging. Left ear: External ear/canal- Normal, TM - erythematous Oropharynx:moist without lesions, No erythema, exudates or tonsillar hypertrophy. Heart: Negative. RRR without obvious murmur, gallop, or rubs. No ectopy. Lungs: clear to auscultation, without rales or wheeze, good air exchange No past medical history on file. No past surgical history on file. ALLERGIES Atropine, Diphenoxylate, Lomotil [Diphenoxylate-Atropine], and Vicodin [Hydrocodone-Acetaminophen] MEDICATIONS atomoxetine (STRATTERA) 40 mg capsule TAKE 1 CAPSULE BY MOUTH IN THE MORNING FOR 3 DAYS then TAKE 1 TABLET BY MOUTH TWICE DAILY omeprazole (PRILOSEC) 20 mg capsule Take by mouth. predniSONE (DELTASONE) 20 mg tablet Take 2 tablets by mouth once daily for 5 days. meloxicam (MOBIC) 7.5 mg tablet Take 7.5 mg by mouth once daily. rizatriptan ([employer]) 10 mg disintegrating tablet 1 tablet orally one time may repeat after 2 hours if headache persists up to 30 mg per day as needed amoxicillin (AMOXIL) 875 mg tablet Take 1 tablet by mouth twice daily for 7 days. LIDOCAINE VISCOUS 2 % solution Take 15 mL by mouth every 3 hours as needed for pain. FISH OIL-DHA-EPA ORAL Take by mouth. (Patient not taking: Reported on 04/26/2022) MULTI-VITAMIN ORAL Take by mouth. (Patient not taking: Reported on 04/26/2022) Clobetasol Propionate (TEMOVATE) 0.05 % external solution Apply to the affected areas scalp at bedtime for 3 weeks then apply as needed for flares (Patient not taking: Reported on 10/06/2021) clobetasol (TEMOVATE) 0.05 % cream Apply to the hands twice a day x 2 weeks then use as needed for flares (Patient not taking: Reported on 10/06/2021) apremilast (OTEZLA) 30 mg tablet Take 30 mg by mouth once daily. (Patient not taking: Reported on 10/06/2021 ) progesterone micronized (PROMETRIUM) 100 mg capsule (Patient not taking: Reported on 06/27/2020 ) mupirocin (BACTROBAN) 2 % cream Apply 1 application to affected area three times daily. (Patient not taking: Reported on 06/21/2018 ) desonide (DESOWEN) 0.05 % cream Apply 2 times daily left elbow (Patient not taking: Reported on 06/21/2018 ) Kutizrqq-Ae-Woc-Fe-FA ( FORMULA) tab Take 1 tablet by mouth once daily. (Patient not taking: Reported on 06/27/2020 ) Laneview-3 Fatty Acids-Vitamin E (FISH OIL) 1,000 mg cap Take 2 capsules by mouth once daily. (Patient not taking: Reported on 06/27/2020 ) No family history on file. Social History Tobacco Use Smoking status: Never Smokeless tobacco: Never Substance Use Topics Alcohol use: Never Drug use: Never ASSESSMENT/PLAN: 1. Non-recurrent acute suppurative otitis media of right ear without spontaneous rupture of tympanic membrane - ICD9: 382.00, ICD10: H66.001 Patient previously had strep and viral swabs to rule out differentials. - AMOXICILLIN 875 MG TABLET Prescription instructions reviewed with patient as applicable. Potential red flag symptoms discussed with the patient. Reviewed appropriate action plan to take if red flag symptoms occur. Patient agreeable to treatment plan. Kristine Arguello APRN.[facility] 04-29-2022 History of Present illness Narrative CC: Patient presents with: Ear Pain: Pt reported bilateral ear pain, decreased hearing, x1 day. HPI: Viktor Abbott is a 46 year old female who presents to the office with complaint of head congestion, cough, nonproductive, sore throat, sinus symptoms, and ear symptoms ear is getting worse over the last day.. Symptoms are worsening Associated symptoms includes ear pain. Denies fever, nausea, vomiting , and diarrhea. Treatments tried include nothing so far. with no relief of symptoms. Sick contacts: unknown. History of asthma, frequent episodes of bronchitis, chronic bronchitis, bronchiectasis or COPD: No Smoker: No Seasonal/environmental allergies: No The ROS is otherwise negative. The patient's pmh, medications, allergies, and past visits are reviewed. PHYSICAL EXAM: BP 126/88 Pulse 100 Temp 36.9 C (98.4 F) (Tympanic) Resp 18 Wt 74.8 kg (164 lb 12.8 oz) SpO2 99% BMI 31.14 kg/m General appearance: alert, cooperative, pleasant, in no acute distress Head: Normocephalic Eyes: EOM's intact, conjunctiva pink and moist, no icterus, sclera white, non-injected Ears: Right ear: External ear/canal- Normal, TM - erythematous, bulging. Left ear: External ear/canal- Normal, TM - erythematous Oropharynx:moist without lesions, No erythema, exudates or tonsillar hypertrophy. Heart: Negative. RRR without obvious murmur, gallop, or rubs. No ectopy. Lungs: clear to auscultation, without rales or wheeze, good air exchange No past medical history on file. No past surgical history on file. ALLERGIES Atropine, Diphenoxylate, Lomotil [Diphenoxylate-Atropine], and Vicodin [Hydrocodone-Acetaminophen] MEDICATIONS atomoxetine (STRATTERA) 40 mg capsule TAKE 1 CAPSULE BY MOUTH IN THE MORNING FOR 3 DAYS then TAKE 1 TABLET BY MOUTH TWICE DAILY omeprazole (PRILOSEC) 20 mg capsule Take by mouth. predniSONE (DELTASONE) 20 mg tablet Take 2 tablets by mouth once daily for 5 days. meloxicam (MOBIC) 7.5 mg tablet Take 7.5 mg by mouth once daily. rizatriptan ([employer]) 10 mg disintegrating tablet 1 tablet orally one time may repeat after 2 hours if headache persists up to 30 mg per day as needed amoxicillin (AMOXIL) 875 mg tablet Take 1 tablet by mouth twice daily for 7 days. LIDOCAINE VISCOUS 2 % solution Take 15 mL by mouth every 3 hours as needed for pain. FISH OIL-DHA-EPA ORAL Take by mouth. (Patient not taking: Reported on 04/26/2022) MULTI-VITAMIN ORAL Take by mouth. (Patient not taking: Reported on 04/26/2022) Clobetasol Propionate (TEMOVATE) 0.05 % external solution Apply to the affected areas scalp at bedtime for 3 weeks then apply as needed for flares (Patient not taking: Reported on 10/06/2021) clobetasol (TEMOVATE) 0.05 % cream Apply to the hands twice a day x 2 weeks then use as needed for flares (Patient not taking: Reported on 10/06/2021) apremilast (OTEZLA) 30 mg tablet Take 30 mg by mouth once daily. (Patient not taking: Reported on 10/06/2021 ) progesterone micronized (PROMETRIUM) 100 mg capsule (Patient not taking: Reported on 06/27/2020 ) mupirocin (BACTROBAN) 2 % cream Apply 1 application to affected area three times daily. (Patient not taking: Reported on 06/21/2018 ) desonide (DESOWEN) 0.05 % cream Apply 2 times daily left elbow (Patient not taking: Reported on 06/21/2018 ) Dpiyszjc-Xz-Oyg-Fe-FA ( FORMULA) tab Take 1 tablet by mouth once daily. (Patient not taking: Reported on 06/27/2020 ) [place]-3 Fatty Acids-Vitamin E (FISH OIL) 1,000 mg cap Take 2 capsules by mouth once daily. (Patient not taking: Reported on 06/27/2020 ) No family history on file. Social History Tobacco Use Smoking status: Never Smokeless tobacco: Never Substance Use Topics Alcohol use: Never Drug use: Never ASSESSMENT/PLAN: 1. Non-recurrent acute suppurative otitis media of right ear without spontaneous rupture of tympanic membrane - ICD9: 382.00, ICD10: H66.001 Patient previously had strep and viral swabs to rule out differentials. - AMOXICILLIN 875 MG TABLET Prescription instructions reviewed with patient as applicable. Potential red flag symptoms discussed with the patient. Reviewed appropriate action plan to take if red flag symptoms occur. Patient agreeable to treatment plan. Kristine Arguello APRN.RAUDEL documented in this encounter [facility] 04-26-2022 Influenza virus A and B RNA and SARS-CoV-2 (COVID-19) N gene panel VALENCIA+probe (Resp) COVID 19 RESULT: SARS-CoV-2 (Agent of COVID-19) Not Detected by RT-PCR or equivalent method. This test was developed and its performance characteristics determined by [facility]'s [facility] [place]. This test has been authorized by FDA under an Emergency Use Authorization (EUA). This test has been validated in accordance with the FDA's Guidance Document Policy for Diagnostics Testing in Laboratories Certified to Perform High Complexity Testing under CLIA prior to Emergency use Authorization for Coronavirus Disease 2019 during the Public Health Emergency issued on June 04, 2019. Test performed by [facility], [facility] [place], [address] [place] [address]. INFLUENZA A PCR: Negative for Influenza A by RT-PCR INFLUENZA B PCR: Negative for Influenza B by RT-PCR [facility] Diagnosis Tailbone injury, initial encounter- Primary Closed dislocation of coccyx, initial encounter [facility] Diagnosis Coccydynia- Primary Other disorder of coccyx [facility] Diagnosis Sore throat- Primary Acute pharyngitis Viral syndrome Unspecified viral infection, in conditions classified elsewhere and of unspecified site [facility] Diagnosis Non-recurrent acute suppurative otitis media of right ear without spontaneous rupture of tympanic membrane- Primary [facility] Diagnosis Strep pharyngitis- Primary Streptococcal sore throat documented in this encounter [facility] note* Diagnosis Bacterial sinusitis- Primary Unspecified sinusitis (chronic) Other acute nonsuppurative otitis media of both ears, recurrence not specified Elevated BP without diagnosis of hypertension Exposure to COVID-19 virus [facility] Diagnostic Procedure Only (Urgent) - Closed Specialty Diagnoses / Procedures Referred By Lu chery Referred To Contact XR IMAGING Diagnoses Tailbone injury, initial encounter Procedures XR SACRUM/COCCYX 3V AP/LAT RADEX SACRUM & COCCYX MINIMUM 2 VIEWS Horace Coffey, HECTOR.FARROWING WORKER [address] [place] [address] Xr Imaging Referral ID Status Reason Start Date Expiration Date V isits Requested Visits Authorized [id number] Closed Auto-Generate d Referral 12/31/2021 01/30/2023 1 1 [facility] Summary Purpose Family History No Family History Records FoundNo Family History Records FoundNo Family History Records Found Advance Directives No Advanced Directives Records FoundNo Advanced Directives Records FoundNo Advanced Directives Records Found Reason for Referral Specialty Diagnoses / Procedures Referred By Lu chery Referred To Contact [facility] Diagnoses Coccydynia Procedures CONSULT TO PHYSICAL THERAPY PHYSICAL THERAPY EVALUATION HIGH COMPLEX 45 MINS Gerry Arteaga MD [address] [place] [address] [facility] [place] [address] [place] [address] Referral ID Status Reason Start Date Expiration Date Visits Requested Visits Authorized [id number] Pending Review Auto-Generat ed Referral 01/14/2023 1 1 Health Concerns Infection Onset Date Last Indicated Resolved Time COVID-19 Rule-Out 04/26/2022 04/26/2022 Additional Source Comments INFORMATION SOURCE (unrecogn ized section and content) DATE CREATED AUTHOR AUTHOR'S ORGANIZ ATION 06/22/2021 [facility] Ce cinda Lopez DATE CREATED AUTHOR AUTHOR'S ORGANIZ ATION 03/13/2023 [facility] Source Comments (unrecognize d section and content) In the event this informatio n is protected by the Federal Confidentiality of Alcohol and Drug Abuse Patient Records regulations: The Federal rules restrict any use of the information to criminally investigate or prosecute any alcohol or drug abuse patient.[facility] the event this information is protected by the Federal Confidentiality of Alcohol and Drug Abuse Patient Records regulations: The Federal rules restrict any use of the information to criminally investigate or prosecute any alcohol or drug abuse patient.[facility] the event this information is protected by the Federal Confidentiality of Alcohol and Drug Abuse Patient Records regulations: The Federal rules restrict any use of the information to criminally investigate or prosecute any alcohol or drug abuse patient.[facility] the event this information is protected by the Federal Confidentiality of Alcohol and Drug Abuse Patient Records regulations: The Federal rules restrict any use of the information to criminally investigate or prosecute any alcohol or drug abuse patient.[facility] the event this information is protected by the Federal Confidentiality of Alcohol and Drug Abuse Patient Records regulations: The Federal rules restrict any use of the information to criminally investigate or prosecute any alcohol or drug abuse patient.[facility] the event this information is protected by the Federal Confidentiality of Alcohol and Drug Abuse Patient Records regulations: The Federal rules restrict any use of the information to criminally investigate or prosecute any alcohol or drug abuse patient.[facility] the event this information is protected by the Federal Confidentiality of Alcohol and Drug Abuse Patient Records regulations: The Federal rules restrict any use of the information to criminally investigate or prosecute any alcohol or drug abuse patient.[facility] Reason for Visit (unrecogniz ed section and content) Reason Comments Fall Pt reported fall ice skating 12/29/2021, hit tailbone pain rated 7, x2 days, denied head injury. Reason Comments New Patient Coccyx pain. She fel l ice skating [id number] has some low back pain on left side that radiated to her buttocks and groin and hip. This pain is worse after the fall. Reason Comments Sinus Problem sinus pressure, drai nage, laryngitis x 5 days Reason Comments Ear Pain Pt reported bilatera l ear pain, decreased hearing, x1 day. Reason Comments Sore Throat ST and JOHNSON x 1 day Reason Comments Cough Congestion, JOHNSON, bila teral ear pain x2 weeks, + covid exposure x1 week Care Teams (unrecognized sec tion and content) Lifestyle Block Farmer Relationship Specialty Start Date End Date Casi Remy DO [address] [facility] [place] [address] PCP - General Family Medicine 09/05/22 FOR RECORDS PERTAINING TO PATIENTS WHO ARE OR HAVE BEEN ENROLLED IN A CHEMICAL DEPENDENCY/SUBSTANCEABUSE PROGRAM, SOME INFORMATION MAY BE OMITTED. This clinical summary was aggregated from multiple sources. Caution should be exercised in using it in the provision of clinical care. This summary normalizes information from multiple sources, and as a consequence, information in this document may materially change the coding, format and clinical context of patient data. In addition, data may be omitted in some cases. CLINICAL DECISIONS SHOULD BE BASED ON THE PRIMARY CLINICAL RECORDS. [employer] [facility]. provides no warranty or guarantee of the accuracy or completeness of information in this document.
[2023-04-07 19:41] VITALS: BP 122/77; PULSE 80; RESP 17; O2SAT 97
[2023-04-07 20:47] VITALS: PULSE 77
== END 2023-04-07 20:47 | disposition home or self-care (01) ==
PROVIDERS: Emergency Provider Emergency Medicine; PCP Family Medicine; Visit Provider Emergency Medicine
DX: R55 Syncope and collapse (principal); B34.9 Viral infection, unspecified; Z90.49 Acquired absence of other specified parts of digestive tract; Z90.710 Acquired absence of both cervix and uterus
CPT/HCPCS: 80048; 85025; 87428; 93005; 96360; 96361; 99284; J7030; A4216

== ENCOUNTER 2023-06-15 06:05 | Day surgery (SDC) | payer OTHER, SELFPAY ==
[2023-06-15] VITALS (14 sets, daily range): BP systolic 109–166; BP diastolic 71–99; PULSE 64–108; RESP 14–18; TEMP 35.8–37.2; O2SAT 92–99; BMI 30.2
--- NOTE | 2023-06-15 06:23 | EX.ED.DYSGE1 ---
HPI History of Present Illness Chief Complaint: Flank Pain [facility] Medical History Anemia affecting Back pain Chronic low back pain Elevated blood-pressure reading, without diagnosis of hypertension Fatty liver Fecal incontinence Gastric reflux History of Clostridium difficile infection Lumbar spondylolysis Migraines Non-smoker Obesity Urinary incontinence Home Medications NK 04/07/23 [History Last Taken Unknown] Allergy/AdvReac Type Severity Reaction Status Date / Time atropine sulfate Allergy Hives Verified 06/15/23 06:06 [From Lomotil] diphenoxylate HCl Allergy Hives Verified 06/15/23 06:06 [From Lomotil] tioconazole Allergy Swelling Verified 06/15/23 06:06 [From Monistat 1 (tioconazole)] hydrocodone bitartrate AdvReac Vomiting Verified 06/15/23 06:06 [From Vicodin] Family History Mother Anxiety Hypertension Sister Anxiety Hypertension Arthritis Psoriasis Surgical History History of D&C (~04/2015) Hx of appendectomy Hx of section Hx of hysterectomy Social History Smoking Status: Never smoker alcohol intake: never substance use type: does not use EXAM Physical Exam Const Vital Signs: 06/15/23 06:06 Temperature 96.4 F L Temperature Source Temporal Pulse Rate 90 Respiratory Rate 18 Blood Pressure 166/81 H Blood Pressure Mean 109 Pulse Ox 99 Oxygen Delivery Method Room Air MDM MDM MDM Narrative Medical decision making narrative: HISTORY OF PRESENT ILLNESS: 47-year-old female presents with flank pain. States that started this morning. She notes he has a history of kidney stones. She further states she had acute onset of right-sided flank pain that is nonradiating this morning. Denies hematuria, dysuria urgency. Denies upper abdominal pain. Denies any trauma or falls. Notes history of 4 C-sections and appendectomy otherwise no abdominal surgeries. She also endorses a history of gallstones. REVIEW OF SYSTEMS: Pertinent positives: Flank pain, nausea vomiting Pertinent negatives: Fever, chest pain, shortness of breath, urinary symptoms, change in bowel habits PHYSICAL EXAM: Nursing triage notes reviewed, Vital signs reviewed Constitutional: please see mdm HENT: MMM Eyes: Pupils equal round and reactive to light, Extraocular muscles intact Neck: No stridor, no JVD, full neck ROM Lungs: Clear to auscultation, No wheezing or rales. No increased work of breathing, no conversational dyspnea, no accessory muscle use, no nasal flaring. No respiratory distress noted Heart: Regular rate and rhythm, No murmurs, No rubs and No gallops, 2+ distal pulses (radial, femoral, posterior tibial) in all extremities Abdomen: Soft, there is no tenderness, negative Metzger sign, no rigidity, rebound or guarding, no obvious peritoneal signs, no palpable pulsatile abdominal masses, no auscultated abdominal bruit : Right CVA tenderness noted Extremities: No edema Neuro: No focal neurological deficits, cranial nerves II through XII intact, 5/5 strength in all extremities. Intact sensation to light touch in all extremities, 2+ reflexes bilateral patella tendons. Normal gait. No ataxia. Skin: No rash or lesions noted MEDICAL DECISION MAKING: Chief Complaint: Flank pain External records reviewed: No recent advanced imaging of the abdomen Factors affecting care: Cholelithiasis, diarrhea Consults: Urology (Dr. Rice) [facility] Narrative: Patient was hemodynamically stable, initially hypertensive otherwise afebrile. Exam with right-sided flank pain, right CVA tenderness I considered the following differential diagnosis: Pyelonephritis, nephrolithiasis, UTI, , gallbladder etiology I treat the patient 1 L normal saline, Toradol and Zofran I obtained a broad lab and imaging workup to further elucidate the etiology of previous complaints. ALL IMAGES (IF OBTAINED) HAVE BEEN PERSONALLY REVIEWED AND INTERPRETED BY MYSELF. UA shows evidence of infection CT scan read reviewed myself shows evidence of a large proximal right-sided nephrolithiasis with hydronephrosis CBC without leukocytosis, severe anemia, no thrombocytopenia. Lipase is wnl indicating no pancreatic inflammation. BMP with mild hypokalemia, no anion gap to suggest endorgan hypoperfusion, no metabolic acidosis noted. LFTs show no evidence of hepatobiliary pathology. The synthesis of the patient history, physical exam, labs images suggest a large proximal stone with con commitment UTI which is concerning for failure passed, severe pain and concern for development of urosepsis. Given these concerns I did consult urologist Dr. Rice who recommended antibiotics admission to his service to undergo definitive surgical intervention. Patient was updated. Patient was signed out to a.m. physician pending transfer to floor The patient and/or family, caregivers express understanding. The patient and/or family, caregivers agrees with the plan. Shared decision making: I will have a discussion with the patient and or visitors regarding risk/benefits of further testing or admission. They will be made aware of of the risk/benefits inherent in this decision they will be given the opportunity to voice understanding. Total critical care time today provided was at least 0 minutes. This excludes separately billable procedures. Critical care time (if documented) is secondary to the patient having high probability of clinically significant/life threatening deterioration in the patient's condition which required my urgent intervention. Impression: 1. Flank pain 2. Nephrolithiasis 3. Hydronephrosis 4. UTI Dispo: Admit to [facility] under Dr. Rice This note was generated with [facility] dictation software. It may contain incorrect words, spelling, and punctuation that were not noted in review of the chart prior to signing. Lab Data Labs: Laboratory Results - last 24 hr 06/15/23 06/15/23 06:18 06:37 WBC 8.6 RBC 4.56 Hgb 13.6 Hct 39.5 MCV 86.6 MCH 29.8 MCHC 34.4 RDW Std Deviation 39.2 RDW Coeff of Elizabeth 12.4 Plt Count 277 MPV 9.2 Immature Gran % (Auto) 0.400 Neut % (Auto) 47.7 Lymph % (Auto) 43.5 H Josephine % (Auto) 6.4 Eos % (Auto) 1.5 Baso % (Auto) 0.5 Absolute Neuts (auto) 4.1 Absolute Lymphs (auto) 3.72 Nucleated RBC % 0 Sodium 140 Potassium 3.2 L Chloride 110 H Carbon Dioxide 22.0 Anion Gap 8 BUN 11 Creatinine 0.74 Estim Creat Clear Calc 87.42 Est GFR (MDRD) Af Amer 109 Est GFR (MDRD) Non-Af 90 BUN/Creatinine Ratio 14.9 Glucose 112 H Calcium 9.1 Total Bilirubin 0.20 Direct Bilirubin 0.10 AST 10 L ALT 24 Alkaline Phosphatase 61 Total Protein 6.7 Albumin 3.6 Globulin 3.1 Lipase 61 Urine Color Yellow Urine Clarity Sl. Cloudy Urine pH 5.0 Ur Specific [place] 1.025 Urine Protein 15 H Urine Glucose (UA) Normal Urine Ketones Negative Urine Occult Blood 25 H Urine Nitrite Positive H Urine Bilirubin Negative Urine Urobilinogen Normal Ur Leukocyte Esterase 100 H Urine RBC 0-5 SEEN Urine WBC 10-25 SEEN Ur Squamous Epith Cells 5-10 SEEN Urine Bacteria 2+ Urine Mucus 0 SEEN Discharge Plan Triage Chief Complaint: Flank Pain ED Provider: Juan Moreland Dx/Rx/DC Orders Prescriptions: No Action NK Primary Care Provider: Bob Remy Referrals: Bob Remy DO [Primary Care Provider] -
[2023-06-15] MEDS: 0.9% Normal Saline (1000mL) 1,000 ML 999 ML IV (06:34)
[2023-06-15] MEDS: Ketorolac 15 MG/ML Vial IV ×2 (06:35→15:43)
[2023-06-15] MEDS: Ondansetron 4 MG/2 ML Vial IV ×2 (06:35→08:11)
--- OUTSIDE RECORDS SUMMARY | 2023-06-15 06:38 | XMS RPT_ITS | CCD ---
Author Name Unknown Address [address] [place] [address] Organization [facility] Care Team Providers Care Shipper Receiver Name Role Phone Unavailable Primary Care Provider Unavailrafaela e Jonel ALCOCER, Casi A Primary Care Provider CASI REMY A Primary Care Unavailable CASI REMY A Primary Care Unavailable CASI REMY Primary Care Unavailable CASI REMY Primary Care Unavailable Allergies Allergy Classification Reported Allergen(s) Allergy Type Date of Onset Reaction(s) Facility (8 sources) Acetaminophen / HYDROcodone; Translations: [HYDROCODONE-ACETA MINOPHEN] Drug Allergy 08-17-2014 Vomiting [facility] Work Phone: (8 sources) Atropine / Diphenoxylate; Translations: [DIPHENOXYLATE-ATR OPINE] Drug Allergy 08-17-2014 Hives [facility] Work Phone: (4 sources) Atropine; Translations: [ATROPINE] Drug Allergy 07-31-2017 Unknown [facility] (4 sources) Diphenoxylate; Translations: [DIPHENOXYLATE] Drug Allergy 07-31-2017 Unknown [facility] Medications Current Medications Medication Drug Class(es) Dates [...] tablet (7 sources) take 1 tablet by once daily apremilast (OTEZLA) 30 mg tablet [...] Date Time Vital Sign Value Performing Clinician Faci lity 03-11-2023 11:31-0500 Body temperature 99.19 [degF] Nargis Castillo APRN.CNP Work Phone: [facility] 03-11-2023 11:31-0500 Body weight 71.67 kg Nargis Castillo APRN.CNP Work Phone: [facility] 03-11-2023 11:31-0500 Diastolic blood pressure 98 mm[Hg] Nargis Castillo APRN.CNP Work Phone: [facility] 03-11-2023 11:31-0500 Heart rate 77 /min Nargis Praisler-Wood DIRECTOR CUSTOM.FORESTRY TREE PRUNER Work Phone: [facility] 03-11-2023 11:31-0500 Respiratory rate 18 /min Nargis Praisler-Wood DIRECTOR CUSTOM.FORESTRY TREE PRUNER Work Phone: [facility] 03-11-2023 11:31-0500 SaO2% (BldA) [Mass fraction] 100 % Nargis Praisler-Wood DIRECTOR CUSTOM.FORESTRY TREE PRUNER Work Phone: [facility] 03-11-2023 11:31-0500 Systolic blood pressure 171 mm[Hg] Nargis Praisler-Wood DIRECTOR CUSTOM.FORESTRY TREE PRUNER Work Phone: [facility] 09-05-2022 11:58-0400 Body temperature 99.9 [degF] Shani Harden DIRECTOR CUSTOM.FORESTRY TREE PRUNER Work Phone: [facility] 09-05-2022 11:58-0400 Body weight 69.76 kg Shani Harden DIRECTOR CUSTOM.FORESTRY TREE PRUNER Work Phone: [facility] 09-05-2022 11:58-0400 Diastolic blood pressure 84 mm[Hg] Shani Harden DIRECTOR CUSTOM.FORESTRY TREE PRUNER Work Phone: [facility] 09-05-2022 11:58-0400 Heart rate 107 /min Shani Harden DIRECTOR CUSTOM.FORESTRY TREE PRUNER Work Phone: [facility] 09-05-2022 11:58-0400 Respiratory rate 18 /min Shani Harden DIRECTOR CUSTOM.FORESTRY TREE PRUNER Work Phone: [facility] 09-05-2022 11:58-0400 SaO2% (BldA) [Mass fraction] 97 % Shani Harden DIRECTOR CUSTOM.FORESTRY TREE PRUNER Work Phone: [facility] 09-05-2022 11:58-0400 Systolic blood pressure 136 mm[Hg] Shani Harden DIRECTOR CUSTOM.FORESTRY TREE PRUNER Work Phone: [facility] 04-29-2022 12:42-0500 Body temperature 98.4 [degF] Kristine Arguello HECTOR.FORESTRY TREE PRUNER Work Phone: [facility] 04-29-2022 12:42-0500 Body weight 74.75 kg Kristine Arguello HECTOR.FORESTRY TREE PRUNER Work Phone: [facility] 04-29-2022 12:42-0500 Diastolic blood pressure 88 mm[Hg] Kristine Jos YOUNG.FORESTRY TREE PRUNER Work Phone: [facility] 04-29-2022 12:42-0500 Heart rate 100 /min Kristinecadence Arguello APRN.FORESTRY TREE PRUNER Work Phone: [facility] 04-29-2022 12:42-0500 Respiratory rate 18 /min Kristine Arguello HECTOR.FORESTRY TREE PRUNER Work Phone: [facility] 04-29-2022 12:42-0500 SaO2% (BldA) [Mass fraction] 99 % Kristine Jos HECTOR.FORESTRY TREE PRUNER Work Phone: [facility] 04-29-2022 12:42-0500 Systolic blood pressure 126 mm[Hg] Kristine Arguello HECTOR.FORESTRY TREE PRUNER Work Phone: [facility] 04-26-2022 10:16-0500 Body temperature 97.9 [degF] Norah Denbow PA-C Work Phone: [facility] 04-26-2022 10:16-0500 Body weight 73.48 kg Norah Denbow PA-C Work Phone: [facility] 04-26-2022 10:16-0500 Diastolic blood pressure 64 mm[Hg] Norah Denbow PA-C Work Phone: [facility] 04-26-2022 10:16-0500 Heart rate 102 /min Norah Denbow PA-C Work Phone: [facility] 04-26-2022 10:16-0500 Respiratory rate 18 /min Norah Denbow PA-C Work Phone: [facility] 04-26-2022 10:16-0500 SaO2% (BldA) [Mass fraction] 100 % Norah Limon PA-C Work Phone: [facility] 04-26-2022 10:16-0500 Systolic blood pressure 118 mm[Hg] Norah Limon PA-C Work Phone: [facility] 01-14-2022 09:59-0400 Body height 154.9 cm Gerry Arteaga MD Work Phone: [facility] 01-14-2022 09:59-0400 Body weight 76.77 kg Gerry Arteaga MD Work Phone: [facility] 01-14-2022 09:59-0400 Diastolic blood pressure 93 mm[Hg] Gerry Arteaga MD Work Phone: [facility] 01-14-2022 09:59-0400 Heart rate 85 /min Gerry Arteaga MD Work Phone: [facility] 01-14-2022 09:59-0400 Respiratory rate 20 /min Gerry Arteaga MD Work Phone: [facility] 01-14-2022 09:59-0400 Systolic blood pressure 133 mm[Hg] Gerry Arteaga MD Work Phone: [facility] 12-31-2021 09:58-0400 Body temperature 98.2 [degF] Horace Pendlebury DIRECTOR CUSTOM.FORESTRY TREE PRUNER Work Phone: [facility] 12-31-2021 09:58-0400 Body weight 77.2 kg Horace Pendsofia DIRECTOR CUSTOM.FORESTRY TREE PRUNER Work Phone: [facility] 12-31-2021 09:58-0400 Diastolic blood pressure 80 mm[Hg] Horace Pendlebury DIRECTOR CUSTOM.FORESTRY TREE PRUNER Work Phone: [facility] 12-31-2021 09:58-0400 Heart rate 76 /min Horace Pendlebury DIRECTOR CUSTOM.FORESTRY TREE PRUNER Work Phone: [facility] 12-31-2021 09:58-0400 Respiratory rate 18 /min Horace Pendlebury DIRECTOR CUSTOM.FORESTRY TREE PRUNER Work Phone: [facility] 12-31-2021 09:58-0400 SaO2% (BldA) [Mass fraction] 99 % Horace Coffey DIRECTOR CUSTOM.FORESTRY TREE PRUNER Work Phone: [facility] 12-31-2021 09:58-0400 Systolic blood pressure 128 mm[Hg] Horace Coffey DIRECTOR CUSTOM.FORESTRY TREE PRUNER Work Phone: [facility] 10-06-2021 11:47-0400 Body temperature 97.81 [degF] Horace Coffey DIRECTOR CUSTOM.FORESTRY TREE PRUNER Work Phone: [facility] 10-06-2021 11:47-0400 Body weight 78.02 kg Horaceeric Coffey DIRECTOR CUSTOM.FORESTRY TREE PRUNER Work Phone: [facility] 10-06-2021 11:47-0400 Diastolic blood pressure 80 mm[Hg] Horace Coffey DIRECTOR CUSTOM.FORESTRY TREE PRUNER Work Phone: [facility] 10-06-2021 11:47-0400 Heart rate 75 /min Horace Coffey DIRECTOR CUSTOM.FORESTRY TREE PRUNER Work Phone: [facility] 10-06-2021 11:47-0400 Respiratory rate 16 /min Horace Erlinda DIRECTOR CUSTOM.FORESTRY TREE PRUNER Work Phone: [facility] 10-06-2021 11:47-0400 SaO2% (BldA) [Mass fraction] 98 % Horace Coffey DIRECTOR CUSTOM.FORESTRY TREE PRUNER Work Phone: [facility] 10-06-2021 11:47-0400 Systolic blood pressure 122 mm[Hg] Horace Coffey DIRECTOR CUSTOM.FORESTRY TREE PRUNER Work Phone: [facility] Encounters Encounter Date Encounter Type Care Provider Facility Start: 04-07-2023 End: 04-07-2023 ambulatory [facility] Facility:[facility] Start: 03-11-2023 End: 03-11-2023 ambulatory [facility] Facility:[facility] Start: 03-11-2023 End: 03-11-2023 Patient encounter procedure Nargis Castillo DIRECTOR CUSTOM.FORESTRY TREE PRUNER Work Phone: [facility] Procedures Date Procedure Procedure Detail Performing Clinician Start: 09-05-2022 STREP A MOLECULAR (POC) Nargis Castillo APRN.FORESTRY TREE PRUNER Work Phone: Start: 04-26-2022 STREP A MOLECULAR (POC) Laura Mauricio PA-C Work Phone: Start: 10-06-2021 Urnls dip stick/tabl et rgnt auto w/o microscopy Kristine Arguello DIRECTOR CUSTOM.FORESTRY TREE PRUNER Work Phone: Plan of Treatment Date Care Activity Detail Author Start: 04-26-2024 Urine microalbumin profile DTaP,Tdap,Td Vaccine (2 - Td or Tdap) [facility] Start: 12-05-2022 Covid-19 Vaccine () Covid-19 Vaccine () [facility] Start: 12-05-2022 Influenza vaccination [facility] Start: 2022 Cologuard (FIT-DNA) Cologuard (FIT-DNA) [facility] Start: 2022 Colonoscopy Colonoscopy [facility] Start: 2022 Colorectal Cancer Screening Colorectal Cancer Screening [facility] Start: [address] Colonography [facility] Start: 2022 Diabetes Screening Diabetes Screening [facility] Start: 2022 Fecal Occult Blood Fecal Occult Blood [facility] Start: 2022 Lipid 1996 panel - Serum or Plasma Lipid Screening [facility] Start: 2022 Sigmoidoscopy Sigmoidoscopy [facility] Start: 04-26-2022 End: 05-10-2022 Influenza virus A and B RNA and SARS-CoV-2 (COVID-19) N gene panel - Respiratory specimen by VALENCIA with probe detection [facility] Work Phone: Payers Date Payer Category Payer Unknown MMO MMO [employer] [id number] 2018-Present [phone] [address] [place] [address] PPO [id number] 2018 Unknown [id number] 2018 Unknown [id number] Social History Date Type Detail Facility Start: 08-17-2014 Tobacco smoking stat us VAIS Never smoked tobacco [facility] Work Phone: Start: 08-17-2014 Tobacco use and exposure Smokeless tobacco non-user [facility] Work Phone: Start: 10-06-2021 Alcohol intake Not Asked [facility] Start: 1975 Sex Assigned At Not on file [facility] Start: 09-26-2021 End: 12-31-2021 Exposure to SARS-CoV-2 (event) Not sure [facility] Start: 12-31-2021 End: 03-11-2023 Alcohol intake Lifetime non-drinker (finding) [facility] Start: 03-14-2020 End: 03-11-2023 History of Social function [facility] Start: 03-14-2020 End: 03-11-2023 Tobacco use panel [facility] Adult Depression Screening Assessment 0 [facility] Clinical Notes 10-06-2021 to 04-07-2023 Nargis Castillo APRN.FORESTRY TREE PRUNER - 03/11/2023 11:40 AM ESTPatient InstructionsShani Harden APRN.FORESTRY TREE PRUNER - 09/05/2022 12:07 PM EDTKristine Arguello APRN.CNP - 04/29/2022 12:57 PM ESTPatient Instructions Note Date & Type Note Facility 04-07-2023 Note HNO ID: [id number] Author: Kristine Arguello APRN.FORESTRY TREE PRUNER Service: ? Author Type: Nurse Practitioner Type: Progress Notes Filed: 04/07/2023 5:28 PM Note Text: Patient came in with complaints of cough congestion. Patient says she passed out yesterday on her bathroom floor. Due to that episode patient is being referred to the emergency room where she can get a full evaluation and treatment. Patient was okay with this and will take her. [facility] 03-11-2023 Note HNO ID: [id number] Author: Nargis Castillo APRN.FORESTRY TREE PRUNER Service: ? Author Type: Nurse Practitioner Type: [...] [Diphenoxylate-Atropine], and Vicodin [Hydrocodone-Acetaminophen] MEDICATIONS rizatriptan (MAXALT PHOTOGRAPHER STILL) 10 mg disintegrating tablet 1 tablet orally [...] (Patient not taking: Reported on 06/21/2018 ) Fitwefsz-Kw-Hbr-Fe-FA ( FORMULA) tab Take 1 tablet by mouth once daily. (Patient not taking: Reported on 06/27/2020 ) [place]-3 Fatty Acids-Vitamin E (FISH OIL) 1,000 mg [...] fluids, rest, a (more content not included)... [facility] 03-11-2023 History of Present illness Narrative [...] [Diphenoxylate-Atropine], and Vicodin [Hydrocodone-Acetaminophen] MEDICATIONS rizatriptan (MAXALT PHOTOGRAPHER STILL) 10 mg disintegrating tablet 1 tablet orally [...] (Patient not taking: Reported on 06/21/2018 ) Jubvujzy-Wa-Xtz-Fe-FA ( FORMULA) tab Take 1 tablet by mouth once daily. (Patient not taking: Reported on 06/27/2020 ) [place]-3 Fatty Acids-Vitamin E (FISH OIL) 1,000 mg [...] Discussed expected course of illness Nargis Castillo APRN.FORESTRY TREE PRUNER documented in this encounter [facility] 03-11-2023 Instructions Nargis Castillo APRN.FORESTRY TREE PRUNER - 03/11/2023 11:40 AM EST ASSESSMENT/PLAN: 1. [...] Discussed expected course of illness Nargis Castillo APRN.FORESTRY TREE PRUNER documented in this encounter [facility] 12-07-2022 Note HNO ID: [id number] Author: Kristine Arguello APRN.RAUDEL Service: ? Author [...] TABLET BY MOUTH TWICE DAILY rizatriptan (MAXALT PHOTOGRAPHER STILL) 10 mg disintegrating tablet 1 tablet orally [...] (Patient not taking: Reported on 06/21/2018 ) Cssxutai-Bg-Fea-Fe-FA ( FORMULA) tab Take 1 tablet by mouth once daily. (Patient not taking: Reported on 06/27/2020 ) [place]-3 Fatty Acids-Vitamin E (FISH OIL) 1,000 mg [...] treatment plan. Is going on vacation to [place] so if medication needs changed she will pick a pharmacy that is down in [place]. Kristine Arguello APRN.RAUDEL [facility] 09-05-2022 Note HNO ID: [id number] Author: Shani Harden APRN.RAUDEL Service: ? Author Type: Nurse Practitioner Type: Progress Notes Filed: 09/05/2022 12:20 PM Note Text: This note was created using HIRO Mediariter. Subjective Viktor Abbott is a 46 year old female. 46 year old female with PMH chronic lower back pain, ADHD and GERD presents for complaints of sore throat. Acute onset one day ago +sore throat +headache +enlarge lymph nodes. Denies cough. Denies SOB. Denies inability to handle secretions. Denies difficulty swallowing. Denies N/V/D. The history is provided by the patient. No metal furniture polisher was used. Sore Throat This is a [...] mg by mouth once daily. rizatriptan (MAXALT PHOTOGRAPHER STILL) 10 mg disintegrating tablet 1 tablet orally [...] (Patient not taking: Reported on 06/21/2018 ) Qowgicxy-Le-Dwg-Fe-FA ( FORMULA) tab Take 1 tablet by mouth once daily. (Patient not taking: Reported on 06/27/2020 ) [place]-3 Fatty Acids-Vitamin E (FISH OIL) 1,000 mg [...] not in acu (more content not included)... [facility] 09-05-2022 History of Present illness Narrative This note was created using HIRO Mediar[employer]. Subjective Viktor Abbott is a 46 year old female. 46 year old female with PMH chronic lower back pain, ADHD and GERD presents for complaints of sore throat. Acute onset one day ago +sore throat +headache +enlarge lymph nodes. Denies cough. Denies SOB. Denies inability to handle secretions. Denies difficulty swallowing. Denies N/V/D. The history is provided by the patient. No metal furniture polisher was used. Sore Throat This is a [...] mg by mouth once daily. rizatriptan (MAXALT PHOTOGRAPHER STILL) 10 mg disintegrating tablet 1 tablet orally [...] (Patient not taking: Reported on 06/21/2018 ) Ctmkfuml-Ox-Ekx-Fe-FA ( FORMULA) tab Take 1 tablet by mouth once daily. (Patient not taking: Reported on 06/27/2020 ) [place]-3 Fatty Acids-Vitamin E (FISH OIL) 1,000 mg [...] Shani Harden APRN.RAUDEL documented in this encounter [facility] 04-29-2022 Note HNO ID: [id number] Author: Kristine Arguello APRN.RAUDEL Service: ? Author [...] mg by mouth once daily. rizatriptan (MAXALT PHOTOGRAPHER STILL) 10 mg disintegrating tablet 1 tablet orally [...] (Patient not taking: Reported on 06/21/2018 ) Veejalcv-Ry-Uhi-Fe-FA ( FORMULA) tab Take 1 tablet by mouth once daily. (Patient not taking: Reported on 06/27/2020 ) [place]-3 Fatty Acids-Vitamin E (FISH OIL) 1,000 mg [...] Patient agreeable to treatment plan. Kristine Arguello APRN.[facility] 04-29-2022 History of Present illness Narrative [...] mg by mouth once daily. rizatriptan (MAXALT PHOTOGRAPHER STILL) 10 mg disintegrating tablet 1 tablet orally [...] (Patient not taking: Reported on 06/21/2018 ) Dfdmslpl-Oj-Kxb-Fe-FA ( FORMULA) tab Take 1 tablet by mouth once daily. (Patient not taking: Reported on 06/27/2020 ) [place]-3 Fatty Acids-Vitamin E (FISH OIL) 1,000 mg [...] Kristine Arguello APRN.RAUDEL documented in this encounter [facility] 04-26-2022 Influenza virus A and B RNA and SARS-CoV-2 (COVID-19) N gene panel VALENCIA+probe (Resp) COVID 19 RESULT: SARS-CoV-2 (Agent of COVID-19) Not Detected by RT-PCR or equivalent method. This test was developed and its performance characteristics determined by [facility] [place]. This test has been authorized by FDA under an Emergency Use Authorization (EUA). This test has been validated in accordance with the FDA's Guidance Document Policy for Diagnostics Testing in Laboratories Certified to Perform High Complexity Testing under CLIA prior to Emergency use Authorization for Coronavirus Disease 2019 during the Public Health Emergency issued on June 04, 2019. Test performed by [facility], [facility] [place], [address] [id number]. INFLUENZA A PCR: Negative for Influenza A by RT-PCR INFLUENZA B PCR: Negative for Influenza B by RT-PCR [facility] Diagnosis Tailbone injury, initial encounter- Primary Closed dislocation of coccyx, initial encounter [facility] Diagnosis Coccydynia- Primary Other disorder of coccyx [facility] Diagnosis Sore throat- Primary Acute pharyngitis Viral syndrome Unspecified viral infection, in conditions classified elsewhere and of unspecified site [facility]* Diagnosis Non-recurrent acute suppurative otitis media of right ear without spontaneous rupture of tympanic membrane- Primary [facility] Diagnosis Strep pharyngitis- Primary Streptococcal sore throat [facility]* Diagnosis Bacterial sinusitis- Primary Unspecified sinusitis (chronic) Other acute nonsuppurative otitis media of both ears, recurrence not specified Elevated BP without diagnosis of hypertension Exposure to COVID-19 virus [facility] Diagnostic Procedure Only (Urgent) - Closed Specialty Diagnoses / Procedures Referred By Lu chery Referred To Contact XR IMAGING Diagnoses Tailbone injury, initial encounter Procedures XR SACRUM/COCCYX 3V AP/LAT RADEX SACRUM & COCCYX MINIMUM 2 VIEWS Horace Coffey APRN.CNP [address] [place] [address] Xr Imaging Referral ID Status Reason Start Date Expiration Date V isits Requested Visits Authorized [id number] Closed Auto-Generate d Referral 12/31/2021 01/30/2023 1 1 [facility] Summary Purpose Family History No Family History [...] COMPLEX 45 MINS Gerry Arteaga MD [address] [place] [address] [facility] [place] [address] [place] [address] Referral ID Status Reason Start Date Expiration Date Visits Requested Visits Authorized [id number] Pending Review Auto-Generat ed Referral 2 01/14/2023 1 1 Health Concerns Infection Onset Date Last Indicated Resolved Time COVID-19 Rule-Out 04/26/2022 04/26/2022 Additional Source Comments INFORMATION SOURCE (unrecogn ized section and content) DATE CREATED AUTHOR AUTHOR'S ORGANIZ ATION 06/22/2021 [facility] cinda Lopez DATE CREATED AUTHOR AUTHOR'S ORGANIZ ATION 04/08/2023 [facility] Source Comments (unrecognize d section and content) In the event this informatio n is protected by the Federal Confidentiality of Alcohol and Drug Abuse Patient Records regulations: The Federal rules restrict any use of the information to criminally investigate or prosecute any alcohol or drug abuse patient.[facility] the event this information is protected by the Federal Confidentiality of Alcohol and Drug Abuse Patient Records regulations: The Federal rules restrict any use of the information to criminally investigate or prosecute any alcohol or drug abuse patient.[facility] the event this information is protected by the Federal Confidentiality of Alcohol and Drug Abuse Patient Records regulations: The Federal rules restrict any use of the information to criminally investigate or prosecute any alcohol or drug abuse patient.[facility] the event this information is protected by the Federal Confidentiality of Alcohol and Drug Abuse Patient Records regulations: The Federal rules restrict any use of the information to criminally investigate or prosecute any alcohol or drug abuse patient.[facility] the event this information is protected by the Federal Confidentiality of Alcohol and Drug Abuse Patient Records regulations: The Federal rules restrict any use of the information to criminally investigate or prosecute any alcohol or drug abuse patient.[facility] the event this information is protected by the Federal Confidentiality of Alcohol and Drug Abuse Patient Records regulations: The Federal rules restrict any use of the information to criminally investigate or prosecute any alcohol or drug abuse patient.[facility] the event this information is protected by the Federal Confidentiality of Alcohol and Drug Abuse Patient Records regulations: The Federal rules restrict any use of the information to criminally investigate or prosecute any alcohol or drug abuse patient.[facility] Reason for Visit (unrecogniz ed section and content) Reason Comments Fall Pt reported fall ice skating 12/29/2021, hit tailbone pain rated 7, x2 days, denied head injury. Reason Comments New Patient Coccyx pain. She fel l ice skating [id number] has some low back pain on left [...] Care Teams (unrecognized sec tion and content) Shipper Receiver Relationship Specialty Start Date End Date Casi Remy DO [address] [place] [address] PCP - General Family Medicine 09/05/22 FOR [...] BE BASED ON THE PRIMARY CLINICAL RECORDS. [facility]. provides no warranty or guarantee of the accuracy or completeness of information in this document.
[2023-06-15 06:44] LABS: Absolute Lymphocyte Count 3.72 X10^3/uL (0.83-4.51); Absolute Neutrophil Count 4.1 X10^3/uL (2.0-7.7); Basophil# 0.04 X10^3/uL; Basophil% 0.5 % (0-1); Eosinophil# 0.13 X10^3/uL; Eosinophils% 1.5 % (0-5); Hematocrit 39.5 % (37-47); Hemoglobin 13.6 g/dL (12.0-15.0); Lymphocyte # 3.72 X10^3/ul (0.83-4.51); Lymphocyte % 43.5 % (19-41); Mean Corp Hgb Conc 34.4 g/dL (32-36); Mean Corpuscular Hgb 29.8 pg (27.0-32.0); Mean Corpuscular Volume 86.6 fL (81-99); Mean Platelet Vol. 9.2 fl (6.2-12.0); Monocyte# 0.55 X10^3/uL; Monocyte% 6.4 % (0-10); NRBC Flagged by Analyzer 0 % (0-5); Neutrophil # 4.08 X10^3/uL (2.7-7.7); Neutrophil % 47.7 % (47-70); Platelet Count 277 K/mm3 (150-450); RBC Distribution Width CV 12.4 % (11.6-14.6); RBC Distribution Width SD 39.2 fl (35.1-43.9); Red Blood Count 4.56 M/mm3 (4.2-5.4); White Blood Count 8.6 K/mm3 (4.4-11.0)
[2023-06-15 06:48] LABS: Mucous, Urine 0 SEEN /hpf (<or=2+)
[2023-06-15 07:03] LABS: AST(SGOT) 10 U/L (15-37); Alanine Aminotransfer ALT/SGPT 24 U/L (13-56); Albumin, Serum 3.6 g/dL (3.2-5.0); Alkaline Phosphatase 61 U/L (45-117); Globulin 3.1 g/dL (2.2-4.2); Protein, Total 6.7 g/dL (6.4-8.2)
[2023-06-15 07:04] LABS: Anion Gap 8 (5-15); BUN 11 mg/dL (7-18); BUN/Creat Ratio 14.9 RATIO (10-20); Calcium,Total 9.1 mg/dL (8.5-10.1); Chloride 110 mmol/L (98-107); Creatinine, Serum 0.74 mg/dL (0.55-1.02); EST Glomerular Filtration Rate 90 mL/min (>60); Est Glom Filt Rate - Afr Amer 109 mL/min (>60); Estimated Creatinine Clearance 87.42 ml/min; Glucose 112 mg/dL (74-106); Lipase 61 U/L (13-75); Potassium 3.2 mmol/L (3.5-5.1); Sodium Level 140 mmol/L (136-145)
[2023-06-15 07:09] LABS: Color, Urine Yellow (Yellow); Glucose, Dipstick Normal (Normal); Ketone-Dipstick Negative (Negative); Leukocyte Esterase-Dipstick 100 /ul (Negative); Nitrite-Dipstick Positive (Negative); Occult Blood-Urine 25 /ul (Negative); Protein-Dipstick 15 mg/dl (Negative); Specific Gravity, Urine 1.025 (1.002-1.030); Urine Bilirubin Dipstick Negative (Negative); Urine Clarity Sl. Cloudy (Clear); Urine Urobilinogen Normal (Normal)
[2023-06-15] MEDS: Morphine 4 MG/ML Syringe IV (07:13)
--- NOTE | 2023-06-15 07:15 | CT_ITS ---
EXAM: CT abdomen and pelvis without contrast HISTORY: right flank pain TECHNIQUE: No intravenous contrast. A radiation dose optimization technique was used for this scan. COMPARISON: None. LIMITATIONS: None. LOWER CHEST: Normal. LIVER: Mildly enlarged. Mild fatty infiltration. Few probable cysts. GALLBLADDER: Few gallstones. No inflammatory change. BILE DUCTS: Normal. PANCREAS: Normal. SPLEEN: Normal. ADRENAL GLANDS: Normal. KIDNEYS/URETERS/BLADDER: A 3 mm nonobstructing left renal stone is identified. Several nonobstructing right renal stones with few foci of possible dystrophic calcification. A 5 mm obstructing stone is in the proximal right ureter. An additional 2 mm suspected stone is in the proximal to mid right ureter. There is moderate right hydronephrosis. AORTA: Normal caliber. BOWEL/MESENTERY: Normal. APPENDIX: Removed. PERITONEUM: Normal. BONES/SOFT TISSUES: No acute fracture. OTHER: None. CONCLUSION: Bilateral nephrolithiasis. 5 mm obstructing stone in the proximal right ureter with associated moderate hydronephrosis. A 2 mm stone in the proximal to mid right ureter is also suspected. Gallstones. Electronically Signed: Russel Yin MD at 7:53 EDT , CT/Abdomen/Pelvis without Cont IMPRESSION: undefined
[2023-06-15 07:19] LABS: Bacteria 2+ /hpf (None Seen); Red Blood Cells-Urine 0-5 SEEN /hpf (0-5); Squamous Epithelial Cells - UA 5-10 SEEN /hpf (5-10); White Blood Cells 10-25 SEEN /hpf (0-5)
--- NOTE | 2023-06-15 07:42 | PCM.HP.STD ---
HPI - General General Date of Admission: 06/15/23 HPI Narrative VIKTOR LOONEY, is a 47 F who presents to the emergency room with obstructing right kidney stone urine culture looks positive for infection she is clinically stable by getting better for stent placement because she has an infection and obstructing 8 mm stone in the proximal right ureter she also has multiple stones in the right kidney. She has a history of kidney stones. [facility] Medical History Anemia affecting Back pain Chronic low back pain Elevated blood-pressure reading, without diagnosis of hypertension Fatty liver Fecal incontinence Gastric reflux History of Clostridium difficile infection Lumbar spondylolysis Migraines Non-smoker Obesity Urinary incontinence Home Medications NK 04/07/23 [History Last Taken Unknown] Allergy/AdvReac Type Severity Reaction Status Date / Time atropine sulfate Allergy Hives Verified 06/15/23 06:06 [From Lomotil] diphenoxylate HCl Allergy Hives Verified 06/15/23 06:06 [From Lomotil] tioconazole Allergy Swelling Verified 06/15/23 06:06 [From Monistat 1 (tioconazole)] hydrocodone bitartrate AdvReac Vomiting Verified 06/15/23 06:06 [From Vicodin] Family History Mother Anxiety Hypertension Sister Anxiety Hypertension Arthritis Psoriasis Surgical History History of D&C (~04/2015) Hx of appendectomy Hx of section Hx of hysterectomy Social History Smoking Status: Never smoker alcohol intake: never substance use type: does not use ROS Constitutional Constitutional: Denies chills, fever(s) or malaise Eyes Eyes: Denies blurry vision or change in vision ENT HEENT: Reports none Cardiovascular Cardiovascular: Denies chest pain or palpitations Respiratory/Chest Respiratory/Chest: Denies cough or shortness of breath with exertion Gastrointestinal Gastrointestinal: Denies abdominal pain, constipation or diarrhea Musculoskeletal Musculoskeletal: Denies back pain, joint stiffness or joint swelling Integumentary Integumentary: Denies dry skin, jaundice, lesions or rash Neurologic Neurologic: Denies confusion, syncope or weakness Psychiatric Psychiatric: Reports none; Denies anxiety or depression Endocrine Endocrinology: Denies excessive sweating, fatigue or flushing Hematologic/Lymphatic Hematologic/Lymphatic: Denies anemia, easy bleeding or easy bruising Vital Signs Vital Signs Vital Signs: 06/15/23 06:06 Temperature 96.4 F L Temperature Source Temporal Pulse Rate 90 Respiratory Rate 18 Blood Pressure 166/81 H Blood Pressure Mean 109 Pulse Ox 99 Oxygen Delivery Method Room Air Weight Weight: 72.5 kg Body Mass Index (BMI) 30.2 Physical Exam Const alert and oriented x3 General Appearance: cooperative HEENT normocephalic, head/scalp atraumatic, EAC's normal and TM's normal bilaterally Eyes PERRL and EOMs intact bilaterally Pupil: sluggish Neck no lymphadenopathy, supple and no JVD General: trachea midline Lymph Lymphatic: no lymphadenopathy noted, lymphedema and lymphadenopathy Resp normal respiratory effort, normal air movement and clear to auscultation bilaterally Cardio regular rate, regular rhythm and peripheral pulses 2+ throughout GI soft to palpation, non-tender and non-distended Extremity normal capillary refill and no clubbing, cyanosis or edema General Extremity: no tenderness to palpation of joints or extremities Skin no rashes or lesions noted General Skin Exam: turgor normal Lesions: no lesions Rashes: no rashes Neuro CN's II-XII intact bilaterally Speech: speech normal Motor Exam: strength 5/5 throughout; Negative for general weakness Psych thought process normal, cooperative and affect normal Appearance: appropriate Results Medical Records Data Attestation: I reviewed the patient's medical records Lab / Micro Data Attestation: I reviewed the patient's lab results. 06/15/23 06:37 06/15/23 06:37 Labs: Laboratory Results - last 24 hr 06/15/23 06:18: Urine Color Yellow, Urine Clarity Sl. Cloudy, Urine pH 5.0, Ur Specific [place] 1.025, Urine Protein 15 H, Urine Glucose (UA) Normal, Urine Ketones Negative, Urine Occult Blood 25 H, Urine Nitrite Positive H, Urine Bilirubin Negative, Urine Urobilinogen Normal, Ur Leukocyte Esterase 100 H, Urine RBC 0-5 SEEN, Urine WBC 10-25 SEEN, Ur Squamous Epith Cells 5-10 SEEN, Urine Bacteria 2+, Urine Mucus 0 SEEN 06/15/23 06:37: WBC 8.6, RBC 4.56, Hgb 13.6, Hct 39.5, MCV 86.6, MCH 29.8, MCHC 34.4, RDW Std Deviation 39.2, RDW Coeff of Elizabeth 12.4, Plt Count 277, MPV 9.2, Immature Gran % (Auto) 0.400, Neut % (Auto) 47.7, Lymph % (Auto) 43.5 H, Kane % (Auto) 6.4, Eos % (Auto) 1.5, Baso % (Auto) 0.5, Absolute Neuts (auto) 4.1, Absolute Lymphs (auto) 3.72, Nucleated RBC % 0, Sodium 140, Potassium 3.2 L, Chloride 110 H, Carbon Dioxide 22.0, Anion Gap 8, BUN 11, Creatinine 0.74, Estim Creat Clear Calc 87.42, Est GFR (MDRD) Af Amer 109, Est GFR (MDRD) Non-Af 90, BUN/Creatinine Ratio 14.9, Glucose 112 H, Calcium 9.1, Total Bilirubin 0.20, Direct Bilirubin 0.10, AST 10 L, ALT 24, Alkaline Phosphatase 61, Total Protein 6.7, Albumin 3.6, Globulin 3.1, Lipase [address] scan was done demonstrated obstructing right proximal ureteral calculi with hydronephrosis multiple stones in the right kidney 8 mm UPJ stone on the right Assessment & Plan Assessment/Plan (1) Ureteral calculi: PLAN: Patient will be admitted for obstructing stone and UTI plan for cystoscopy stent placement today n.p.o. consent
[2023-06-15] MEDS: HYDROmorphone 1 MG/ML Syringe IV ×2 (07:57→10:14)
[2023-06-15] MEDS: Ceftriaxone 1 GM/50 ML BAG IV (08:11)
[2023-06-15] MEDS: Lactated Ringers 1,000 ML 15 ML IV ×2 (12:07→16:54)
[2023-06-15] MEDS: Ciprofloxacin 400 MG/200 ML BAG 200 MG IV (13:19)
[2023-06-15] MEDS: Lidocaine Jelly 2% 20 ML Syringe (URO-JET) 1 APPLIC (13:35)
--- NOTE | 2023-06-15 13:37 | DCINST_ITS ---
Discharge Instructions Diet Discharge Diet: No restrictions Activity Discharge Activity: Return to Normal Activity and May Not Drive (while taking narcotic pain medications.) Dressing / Incision Call your doctor if you observe: Fever of 101 or Higher Follow Up Care Please Follow Up With: Miky Rice MD When: Call [phone] for an appointment Test Results: Test results from this visit will be discussed in further detail at your follow- up appointment, if applicable. Discharge Plan Admission Attending Provider: Miky Rice Primary Care Provider: Bob Remy Discharge Orders/Prescriptions Prescriptions: No Action NK Referrals / Follow Up: Bob Remy, [Primary Care Provider] - Disposition Disposition (needs filled in before D/C Order can be placed): Home, Self Care
--- NOTE | 2023-06-15 13:37 | PCM.OPRPT ---
Report of Operation Date of Procedure: 06/15/23 Pre-Operative Diagnosis: Obstructing right ureteral calculus Post-Operative Diagnosis: Same plus UTI Surgery/Procedure Performed:: Cystoscopy retrograde pyelogram and right stent placement Description of Surgical Findings:: Patient was taken back to the operating room after induction of general anesthesia, the patient was placed in dorsolithotomy position. The urethra and genitals were prepped and draped in usual sterile fashion. Using a 21 Bengali rigid cystourethroscope the entire length of the urethra was normal then went into the bladder. Identified the trigone the left and right ureteral orifice. I then cannulated the right ureteral orifice and advanced a wire up into the kidney. I then backloaded a 5 Bengali open ended catheter over the wire and injected contrast to delineate the anatomy. After the retrograde was performed I then used fluoroscopic images and guidance to advanced a wire up into the kidney and over the 0.038 glidewire I advanced a 6 Bengali by 26 cm double pigtail stent. I then pulled the 0.038 Glidewire off and the stent coiled in the kidney bladder good position. The bladder was then drained. We confirmed the position of the stent by fluoroscopy. Patient anesthetic was reversed and was taken back to the PACU in good condition. Surgeon: Miky Rice Type of Anesthesia: General Drains: stent Admit VTE Documentation VTE Present on Admission: No VTE Mechan Device Prophylaxis: SCD's VTE Pharm Prophylaxis ordered?: No
[2023-06-15] MEDS: Acetaminophen 325 MG Tablet PO (15:43)
== END 2023-06-15 17:37 | disposition home or self-care (01) ==
LOC: ED 08:52 → SDC 11:48 → ACINP 11:49
PROVIDERS: Emergency Provider Emergency Medicine; PCP Family Medicine; Visit Provider Urology
PROC: (CPT 52332; principal; 2023-06-15 12:50)
DX: N13.6 Pyonephrosis (principal); E87.6 Hypokalemia; Z87.442 Personal history of urinary calculi; Z90.710 Acquired absence of both cervix and uterus; K52.9 Noninfective gastroenteritis and colitis, unspecified; Z86.19 Personal history of other infectious and parasitic diseases; K21.9 Gastro-esophageal reflux disease without esophagitis; Z90.49 Acquired absence of other specified parts of digestive tract
CPT/HCPCS: 52332; 00910; 74176; 76000; 80048; 80076; 81001; 83690; 85025; 87086; 87088; 87186; 99284; J7030; J7120; A4216; C1769; C2617; J0744; J2405

== ENCOUNTER → 2023-09-16 | Outpatient (CLI) | payer OTHER, SELFPAY ==
[2023-09-16 13:41] LABS: Cholesterol 165 mg/dL (200); High Density Lipoprotein 44 mg/dL; Thyroid Stim Hormone (TSH) 0.34 uIU/mL (0.358-3.74); Triglycerides 93 mg/dL; Very Low Density Lipoprotein 19 mg/dL (5-40)
[2023-09-17 15:01] LABS: T4 Free Direct 0.89 ng/dL (0.76-1.46)
== END | disposition home or self-care (01) ==
PROVIDERS: PCP Family Medicine; Referring Provider Family Medicine; Visit Provider Family Medicine
DX: Z00.00 Encounter for general adult medical examination without abnormal findings (principal); R53.83 Other fatigue
CPT/HCPCS: 36415; 80061; 84439; 84443

== ENCOUNTER → 2023-10-02 | Outpatient (CLI) | payer OTHER, SELFPAY ==
--- NOTE | 2023-10-02 07:46 | BI_ITS ---
MAMMOGRAPHY - BILATERAL SCREENING 3-D TOMOSYNTHESIS REASON FOR EXAM: Female, 47 years old. SCREENING PERTINENT HISTORY: No significant family history. TECHNIQUE: 2-D mammograms and 3-D Tomosynthesis of the breast (s) were performed. CAD was performed. COMPARISON: 03/19/2021 FINDINGS: The breast composition is composed of scattered fibroglandular density. Scattered benign calcifications are seen. No dense spiculated masses or suspicious microcalcifications are identified. No architectural distortion is identified. There is no skin thickening or retraction. There has been no significant change since the prior study. BI/SCRN MAMM (CAD)W/REZA BILAT IMPRESSION: No mammographic signs of malignancy. Routine yearly mammograms recommended. ASSESSMENT CATEGORY: BIRADS Category 1: Negative. A letter regarding these results will be sent to the patient by the facility within 30 days. FOLLOW UP RECOMMENDATION: Yearly follow up mammogram recommended. (A) Approximately 10% of breast cancers are not detected by mammography. A normal mammogram should not delay biopsy of a clinically suspicious abnormality. Electronically Signed: Sai Holden MD at 13:25 EDT ,
== END | disposition home or self-care (01) ==
LOC: OPBI 07:45
PROVIDERS: PCP Family Medicine; Referring Provider Family Medicine; Visit Provider Family Medicine
DX: Z12.31 Encounter for screening mammogram for malignant neoplasm of breast (principal)
CPT/HCPCS: 77063; 77067

== ENCOUNTER → 2025-02-28 | Outpatient (CLI) | payer OTHER, SELFPAY ==
[2025-02-28 18:15] LABS: Hematocrit 38.5 % (37-47); Hemoglobin 13.2 g/dL (12.0-15.0); Immature Granulocytes Count 0.020 X10^3/uL (0.0-0.0); Mean Corp Hgb Conc 34.3 g/dL (32-36); Mean Corpuscular Volume 87.3 fL (81-99); Mean Platelet Vol. 9.4 fl (6.2-12.0); NRBC Flagged by Analyzer 0 % (0-5); Platelet Count 389 K/mm3 (150-450); RBC Distribution Width CV 12.9 % (11.6-14.6); RBC Distribution Width SD 41.0 fl (35.1-43.9); Red Blood Count 4.41 M/mm3 (4.2-5.4); White Blood Count 8.0 K/mm3 (4.4-11.0)
[2025-02-28 18:40] LABS: Albumin, Serum 4.3 g/dL (3.5-5.0); Chloride 103 mmol/L (98-108); Ferritin 167 ng/mL (22-378); Iron 108 ug/dL (50-170); Potassium 3.6 mmol/L (3.3-5.1)
[2025-02-28 18:58] LABS: AST(SGOT) 23 U/L (<=31); Alanine Aminotransfer ALT/SGPT 25 U/L (<=34); Alkaline Phosphatase 80 U/L (35-104); Anion Gap 14 (5-15); BUN 6 mg/dL (4-19); BUN/Creat Ratio 9.9 RATIO (10-20); Calcium,Total 9.3 mg/dL (7.6-11.0); Carbon Dioxide 21.9 mmol/L (21.0-32.0); Cholesterol 212 mg/dL (<=200); Globulin 2.5 g/dL (2.2-4.2); Glucose 79 mg/dL (70-99); Low Density Lipoprotein Calc. 141 mg/dL; Triglycerides 126 mg/dL; Very Low Density Lipoprotein 25 mg/dL (5-40); cholesterol:hdl ratio screen 4.35
[2025-03-01 10:34] LABS: Free T3 3.8 pg/mL (2.18-3.98)
== END | disposition home or self-care (01) ==
LOC: BFHLAB 16:26
PROVIDERS: PCP Family Medicine; Visit Provider Family Medicine
DX: Z00.00 Encounter for general adult medical examination without abnormal findings (principal); L65.9 Nonscarring hair loss, unspecified; R53.83 Other fatigue; R79.89 Other specified abnormal findings of blood chemistry
CPT/HCPCS: 36415; 80053; 80061; 82728; 83540; 84439; 84443; 84481; 85025

== ENCOUNTER → 2025-03-21 | Outpatient (CLI) | payer OTHER, SELFPAY ==
--- NOTE | 2025-03-21 13:58 | RAD_ITS ---
PROCEDURE: CHEST PA AND LATERAL 03/21/2025 REASON FOR EXAM: LEFT SIDED CHEST PAIN TECHNIQUE: Procedure Code: RADCXR Modality: DX Procedure: CHEST PA AND LATERAL FINDINGS: No focal consolidation. Scattered reticular opacities may reflect atypical pneumonia versus interstitial edema. No pleural effusion or pneumothorax. Cardiac silhouette is within normal limits. No acute fractures. RAD/Chest PA and Lateral IMPRESSION: No focal consolidation. Scattered reticular opacities may reflect atypical pneu monia versus interstitial edema. Reading Location: [id number]
== END | disposition home or self-care (01) ==
LOC: MTRAD 13:55
PROVIDERS: PCP Family Medicine; Referring Provider Family Medicine; Visit Provider Family Medicine
DX: R07.9 Chest pain, unspecified (principal)
CPT/HCPCS: 71046